=== PATIENT | male | born 1990 | race African-American/Black ===

== ENCOUNTER 2023-01-16 20:02 | Emergency (ER) | payer SELFPAY ==
[2023-01-16 20:50] VITALS: BP 143/87; PULSE 84; RESP 18; TEMP 36.6; O2SAT 97; BMI 36.2
[2023-01-16] MEDS: Amoxicillin 500 MG CAPSULE PO (22:35)
--- NOTE | 2023-01-16 22:35 | ED.GENADULT ---
HPI - General Adult General Chief complaint: Ear Problems Stated complaint: Left ear pain Time Seen by Provider: 01/16/23 22:05 Source: patient, RN notes reviewed and old records reviewed Mode of arrival: ambulatory Limitations: no limitations History of Present Illness HPI narrative: 32-year-old male presents for evaluation of left ear pain. Patient reports that last week he had what he felt was a cold. He had fevers, chills, cough, congestion All of those symptoms resolved with the exception of that he now has left ear With started about 3 days ago He feels of the ear is ?clogged. ? He reports trying to clean out the ear with hydrogen peroxide, drops from [employer] and ?Q-tips. ? No drainage from the ear Related Data Previous Rx's Medication Instructions Recorded amoxicillin 500 mg tablet 500 mg PO TID #30 tabs 01/16/23 Allergies Allergy/AdvReac Type Severity Reaction Status Date / Time No Known Allergies Allergy Verified 01/16/23 20:48 Review of Systems Constitutional: Constitutional: Denies chills and Denies fever(s) ENT: Denies ear discharge and Reports otalgia Cardiovascular: Cardiovascular: Denies dyspnea Respiratory: Respiratory: Reports cough and Denies dyspnea PMFSH Social History Social History Advance Directives: No Advance Directives Information Provided: No Physical Exam ED Vital Signs: Vital Signs - 24 hr 01/16/23 20:50 Temperature 97.8 F Pulse Rate 84 Respiratory Rate 18 Blood Pressure 143/87 H Pulse Oximetry 97 Oxygen Delivery Method Room Air BMI result Body Mass Index 36.2 Const General: healthy appearing, comfortable, no acute distress, alert and awake Nutritional Appearance: well nourished Orientation/consciousness: patient oriented x3 HENMT Other: No mastoid tenderness, pre or postauricular edema bilaterally Head: Yes normocephalic and Yes atraumatic Ears: external ears normal, TM's abnormal bilaterally, TM normal on the right, left TM abnormal and TM abnormal (On left only) bulging, erythematous and with fluid behind the TM Eyes Eyelids: Yes eyelids normal Conjunctivae: conjunctivae normal Sclerae: sclerae normal Corneas: corneas normal Pupils: Equal, round and reactive pupils present EOM: EOMs intact bilaterally Neck Neck: Yes full ROM Resp Effort & Inspection: normal respiratory effort, able to speak in complete sentences and not labored Neuro General: patient oriented x3 Cranial nerves: Yes Equal, round and reactive pupils present and Yes Bilaterally intact EOM present Cognition (Neuro): normal cognition Extrem Other: Moving all extremities well without any obvious deformities Medications Administered Discontinued Medications Generic Name Dose Route Start Last Admin Trade Name Guillermina PRN Reason Stop Dose Admin Amoxicillin 500 mg 01/16/23 22:29 01/16/23 22:35 Amoxicillin 500 Mg Capsule PO 01/16/23 22:30 500 mg ONCE ONE Administration Medical Decision Making Medical Decision Making [facility] Narrative: 32-year-old male presents for evaluation of left ear pain. Clinically has acute otitis media without complication. He will be treated with amoxicillin t.i.d. times 10 days. He was encouraged not to put anything in his ear Differential Diagnosis Differential Diagnoses: The differential diagnosis associated with the presentation includes Otitis media Otitis externa Mastoiditis Middle ear effusion Cerumen impaction Discharge Plan Discharge Clinical Impression: Otitis media Qualifiers: Otitis media type: serous Chronicity: acute Laterality: left Patient Disposition: Home, Self-Care Instructions: Ear Infection (ED) Additional Instructions: You have an ear infection of the left ear Take the antibiotic twice daily for 10 days Do not stick anything in your ear including Q-tips Follow-up with your primary doctor Prescriptions: New amoxicillin 500 mg tablet 500 mg PO TID Qty: 30 0RF Interventions: ED Discharge Assessment Last Done: 01/16/23 22:44
== END 2023-01-16 22:47 | disposition home or self-care (01) ==
PROVIDERS: Emergency Provider Internal Medicine
DX: H65.02 Acute serous otitis media, left ear (principal)
CPT/HCPCS: 99283

== ENCOUNTER 2023-04-28 00:25 | Emergency (ER) | payer SELFPAY ==
--- NOTE | ~2023-04-28 | XR_ITS ---
EXAMINATION: XR CHEST CLINICAL INFORMATION: Cough COMPARISON: None available. TECHNIQUE: Frontal view of the chest was obtained. FINDINGS: Diffuse bilateral bronchial wall thickening. No focal consolidation. No pleural effusion or pneumothorax. Normal heart size and pulmonary vascularity. Multiple healed right-sided rib fractures. XR/XR chest 1V IMPRESSION: * Diffuse bilateral bronchial wall thickening suggestive of bronchitis. * No focal consolidation.
[2023-04-28 00:36] VITALS: BP 154/100; PULSE 120; PULSE 128; RESP 25; TEMP 37.8; O2SAT 95; O2SAT 96; BMI 34.0
--- NOTE | 2023-04-28 01:10 | PC.NURSE ---
dr. mendez aware of meeting sepsis criteria. 2x attmempts at iv no access. dr. mendez aware. labs obtained.
[2023-04-28 01:12] LABS: Basophils Percent Auto 0.3 % (0-2); Eosinophils Absolute Auto 0.1 X10*3/uL (0.0-0.4); Eosinophils Percent Auto 1.4 % (0-4); Hematocrit 44.2 % (42.0-52.0); Hemoglobin 15.8 g/dl (14.0-18.0); Imm Gran Abs Auto 0.04 X10*3/uL (0.00-0.03); Imm Gran Pct Auto 0.6 % (0.0-0.4); Lymphocytes Absolute Auto 1.2 X10*3/uL (1.2-4.9); Lymphocytes Percent Auto 17.8 % (20-40); MANUAL DIFF FLAG SCAN; Mean Corpuscular HGB Conc 35.7 g/dl (31.0-36.0); Mean Corpuscular Hemoglobin 30.4 pg (27.0-33.0); Mean Corpuscular Volume 85.2 fL (80.0-98.0); Monocytes Absolute Auto 1.5 X10*3/uL (0.1-1.2); Monocytes Percent Auto 23.4 % (2-11); Neutrophils Absolute Auto 3.6 x10*3/uL (2.0-8.3); Neutrophils Percent Auto 56.5 % (45-73); Platelet Count 178 X10*3/uL (160-400); Red Blood Count 5.19 X10*6/uL (4.60-5.80); Red Cell Distribution Width 12.5 % (11.0-16.0); SCAN SMEAR FLAG 1; White Blood Count 6.5 X10*3/uL (4.8-10.8)
--- NOTE | 2023-04-28 01:27 | ED.FEVER ---
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 complaining of cold symptoms body aches sore throat the read fever since early today T-max was 104 degrees at home Related Data Previous Rx's Medication Instructions Recorded amoxicillin 500 mg tablet 500 mg PO TID #30 tabs 01/16/23 codeine 10 mg-guaifenesin 100 mg/5 10 ml PO Q6H PRN cough #237 mL 04/28/23 mL oral liquid ibuprofen 600 mg tablet 600 mg PO Q6H PRN fever or pain 04/28/23 #30 tabs oseltamivir 75 mg capsule (Tamiflu) 75 mg PO BID 5 days #10 caps 04/28/23 Allergies Allergy/AdvReac Type Severity Reaction Status Date / Time No Known Allergies Allergy Verified 01/16/23 20:48 Review of Systems Review of Systems: Yes all other systems are reviewed and are negative [facility] Social History Social History Advance Directives: No Advance Directives Information Provided: No Physical Exam Vital Signs: Vital Signs: Last Vital Signs Temp 100.1 F 04/28/23 00:36 Pulse 114 H 04/28/23 02:06 Resp 25 H 04/28/23 00:36 BP 124/66 04/28/23 02:06 Pulse Ox 95 04/28/23 00:36 O2 Del Method Room Air 04/28/23 00:36 BMI result Body Mass Index 34.0 Appearance: Alert. Oriented X3. No acute distress. Febrile to touch Eyes: Slightly injected conjunctiva ENT: Pharynx normal. Oral Mucosa moist Neck: Normal inspection. Neck supple. CVS: Normal heart rate and rhythm. Pulses normal. Respiratory: No respiratory distress. Equal air entry bilateral, Abdomen: Soft and nontender. Bowel sounds are present, Skin: Skin warm and dry. Normal skin color. Normal skin turgor. Extremities: No lower extremity edema. No calf tenderness Neuro: Oriented X 3. No motor deficit. Medications Administered Discontinued Medications Generic Name Dose Route Start Last Admin Trade Name Freq PRN Reason Stop Dose Admin Acetaminophen 975 mg 04/28/23 01:40 04/28/23 02:02 Acetaminophen 325 Mg Tablet PO 04/28/23 01:41 975 mg ONCE ONE Administration Guaifenesin/Codeine Phosphate 10 ml 04/28/23 01:40 04/28/23 02:02 Guaifen/Codeine Sf 200/20/10ml 10 Ml Liquid PO 04/28/23 01:41 10 ml ONCE ONE Administration Oseltamivir Phosphate 75 mg 04/28/23 01:55 04/28/23 02:02 Oseltamivir Phosphate 75 Mg Capsule PO 04/28/23 01:56 75 mg ONCE ONE Administration Medical Decision Making Medical Decision Making MDM Narrative: Patient with influenza B COVID, RSV negative chest x-ray negative for acute infiltrate will discharge patient on supportive treatment Lab Data MDM Lab Attestation statement: I reviewed the patient's lab results. 04/28/23 01:04 04/28/23 01:04 Labs: Lab Results 04/28/23 04/28/23 Range/Units 01:04 01:05 WBC 6.5 (4.8-10.8) X10*3/uL RBC 5.19 (4.60-5.80) X10*6/uL Hgb 15.8 (14.0-18.0) g/dl Hct 44.2 (42.0-52.0) % MCV 85.2 (80.0-98.0) fL MCH 30.4 (27.0-33.0) pg MCHC 35.7 (31.0-36.0) g/dl RDW 12.5 (11.0-16.0) % Plt Count 178 (160-400) X10*3/uL MPV 11.0 (9.4-12.4) fL Immature Gran % (Auto) 0.6 H (0.0-0.4) % Neut % (Auto) 56.5 (45-73) % Lymph % (Auto) 17.8 L (20-40) % [place] % (Auto) 23.4 H (2-11) % Eos % (Auto) 1.4 (0-4) % Baso % (Auto) 0.3 (0-2) % Lymph # (Auto) 1.2 (1.2-4.9) X10*3/uL [place] # (Auto) 1.5 H (0.1-1.2) X10*3/uL Eos # (Auto) 0.1 (0.0-0.4) X10*3/uL Baso # (Auto) 0.0 (0.0-0.2) X10*3/uL Abs Immat Gran (auto) 0.04 H (0.00-0.03) X10*3/uL Absolute Neuts (auto) 3.6 (2.0-8.3) x10*3/uL Absolute Nucleated RBC 0.000 (0.0-0.012) X10*3/uL Nucleated RBC % (auto) 0.0 (0.0-0.2) /100WBC Smear Tech's Comments VERIFIED Sodium 138 (135-145) mmol/L Potassium 3.8 (3.3-5.1) mmol/L Chloride 107 (96-108) mmol/L Carbon Dioxide 22 (22-29) mmol/L Anion Gap 13 (12-20) BUN 12 (9-16) mg/dL Creatinine 0.85 (0.5-1.4) mg/dL Estim Creat Clear Calc 160.9 Estimated GFR > 60 Random Glucose 147 H (60-115) mg/dL Calcium 9.0 (8.4-10.2) mg/dL Total Bilirubin 0.5 (0.0-1.0) mg/dL AST 46 H (5-37) U/L ALT 69 H (0-40) U/L Alkaline Phosphatase 54 (39-117) U/L Total Protein 6.9 (6.5-8.0) g/dL Albumin 4.1 (3.5-5.0) g/dL Influenza Type A (PCR) NEGATIVE (Negative) Influenza Type B (PCR) POSITIVE A (Negative) RSV RNA Qual (PCR) NEGATIVE (Negative) SARS-CoV-2 RNA (RT-PCR) NEGATIVE (Negative) Independent Interpretation I performed an independent interpretation of an: Plain X-Ray Radiology Impression Discussion of test interpretation with radiology: I have reviewed the radiologist's reading. Discharge Plan Discharge Clinical Impression: Influenza B Patient Disposition: Home, Self-Care Instructions: Influenza (ED) Additional Instructions: Drink plenty of fluids Tylenol/Motrin for fever Cough syrup as prescribed Tamiflu daily for 5 days Follow with PCP if not better Beber mucho l?qustephanie Tylenol/Motrin para la fiebre Jarabe para la tos seg?n lo prescrito Tamiflu diario lashonda 5 d?as. Seguir con PCP si no es mejor Prescriptions: New codeine-guaifenesin 10-100 mg/5 mL liquid 10 ml PO Q6H PRN (Reason: cough) Qty: 237 0RF ibuprofen 600 mg tablet 600 mg PO Q6H PRN (Reason: fever or pain) Qty: 30 0RF oseltamivir [Tamiflu] 75 mg capsule 75 mg PO BID 5 Days Qty: 10 0RF No Action amoxicillin 500 mg tablet 500 mg PO TID Qty: 30 0RF Stand Alone Forms: Work/School Release Interventions: ED Discharge Assessment Last Done: 04/28/23 02:52 Discharge Date/Time: 04/28/23 02:52 Print Language: Luxembourger
[2023-04-28 01:32] LABS: Alanine Aminotransferase 69 U/L (0-40); Albumin Level 4.1 g/dL (3.5-5.0); Alkaline Phosphatase 54 U/L (39-117); Anion Gap 13 (12-20); Aspartate Amino Transferase 46 U/L (5-37); Bilirubin Total 0.5 mg/dL (0.0-1.0); Blood Urea Nitrogen 12 mg/dL (9-16); Carbon Dioxide 22 mmol/L (22-29); Chloride 107 mmol/L (96-108); Creatinine Clr Calc Pharmacy 160.9; Estimated Glomerular Filt Rate > 60; Glucose Random 147 mg/dL (60-115); Potassium 3.8 mmol/L (3.3-5.1); Sodium 138 mmol/L (135-145); Total Protein 6.9 g/dL (6.5-8.0)
[2023-04-28 01:36] LABS: SLIDE REVIEW VERIFIED
[2023-04-28 01:53] LABS: Influenza A PCR NEGATIVE (Negative); Influenza B PCR POSITIVE (Negative); Resp Syncy Virus RNA Qual PCR NEGATIVE (Negative); SARS COV2 PCR INHOUSE NEGATIVE (Negative)
[2023-04-28] MEDS: Oseltamivir Phosphate 75 MG CAPSULE PO (02:02)
[2023-04-28] MEDS: Acetaminophen 325 MG TABLET 975 MG PO (02:02)
[2023-04-28] MEDS: guaiFEN/Codeine SF 200/20/10ML 10 ML LIQUID PO (02:02)
[2023-04-28 02:06] VITALS: BP 124/66; PULSE 114
--- NOTE | 2023-04-28 02:06 | PC.NURSE ---
pt educated on isolation precautions; medicated per jul. resp even and unlabored lung sounds cta.
== END 2023-04-28 02:52 | disposition home or self-care (01) ==
PROVIDERS: Emergency Provider Internal Medicine
DX: J10.1 Influenza due to other identified influenza virus with other respiratory manifestations (principal); Z20.822 Contact with and (suspected) exposure to COVID-19; Z20.828 Contact with and (suspected) exposure to other viral communicable diseases
CPT/HCPCS: 0241U; 36415; 71045; 80053; 85025; 99283; 99284

== ENCOUNTER 2023-05-06 19:50 | Emergency (ER) | payer OTHER, SELFPAY ==
--- NOTE | ~2023-05-06 | XR_ITS ---
EXAMINATION: XR TOES, RIGHT CLINICAL INFORMATION: Right great toe pain. Redness. COMPARISON: None available. TECHNIQUE: 3 views of the right toes were obtained. FINDINGS: There are no fractures or dislocations. No joint effusion is identified. No bone, joint or soft tissue abnormality is demonstrated. XR/XR toe RT min 2V IMPRESSION: Unremarkable right great toe examination.
[2023-05-06 19:58] VITALS: BP 148/86; PULSE 83; RESP 18; TEMP 37.1; O2SAT 97; BMI 38.5
--- NOTE | 2023-05-06 20:06 | ED.GENADULT ---
HPI - General Adult General Chief complaint: Extremity Injury, Lower Stated complaint: Lt Infected Thumb Time Seen by Provider: 05/06/23 22:29 Source: patient Mode of arrival: ambulatory Limitations: no limitations History of Present Illness HPI narrative: 33-year-old male with a history of ingrown toenails presents to the ER with complaints of right great toe pain and swelling noticed today with no known injury or trauma. Patient denies fevers, chills, numbness or tingling. Related Data Previous Rx's Medication Instructions Recorded amoxicillin 500 mg tablet 500 mg PO TID #30 tabs 01/16/23 codeine 10 mg-guaifenesin 100 mg/5 10 ml PO Q6H PRN cough #237 mL 04/28/23 mL oral liquid ibuprofen 600 mg tablet 600 mg PO Q6H PRN fever or pain 04/28/23 #30 tabs oseltamivir 75 mg capsule (Tamiflu) 75 mg PO BID 5 days #10 caps 04/28/23 doxycycline monohydrate 100 mg 100 mg PO BID #20 caps 05/06/23 capsule ibuprofen 600 mg tablet 600 mg PO Q8H PRN pain #30 tabs 05/06/23 Allergies Allergy/AdvReac Type Severity Reaction Status Date / Time No Known Allergies Allergy Verified 01/16/23 20:48 Review of Systems Review of Systems: Yes all other systems are reviewed and are negative Constitutional: Constitutional: Reports no additional constitutional complaints, Denies body ache(s), Denies chills, Denies fever(s), Denies headache(s) and Denies weakness Eyes: Eyes: Reports no additional eye complaints and Denies change in vision ENT: Reports system reviewed and no additional complaints, except as documented, Denies dizziness, Denies headache(s), Denies nasal congestion, Denies nasal discharge and Denies neck pain Cardiovascular: Cardiovascular: Reports no additional cardiovascular complaints, Denies chest pain, Denies leg edema and Denies dyspnea Respiratory: Respiratory: Reports no additional respiratory complaints, Denies cough and Denies dyspnea Gastrointestinal: Gastrointestinal: Reports no additional gastrointestinal complaints, Denies abdominal pain, Denies diarrhea, Denies nausea and Denies vomiting Genitourinary: Genitourinary: Denies urinary incontinence Musculoskeletal: Musculoskeletal: Reports no additional musculoskeletal complaints, Denies back pain, Denies arthralgias, Denies joint swelling, Denies neck pain, Denies numbness and Denies tingling Integumentary/Breasts: Skin/Breast: Reports system reviewed and no additional complaints, except as docu, Reports swelling, Reports erythema and Denies rash Neurologic: Reports system reviewed and no additional complaints, except as documented, Denies Abnormal speech present, Denies dizziness, Denies headache(s), Denies numbness, Denies tingling and Denies weakness PMFSH Past Medical History Attestation statement: The following information was validated with the patient. Source: old records reviewed and nursing notes reviewed Onset Date is defined in the Problem List Problems that require an onset date and time if occurred within 24 hrs of arrival to the ED Aortic Dissection and Rupture; Neurologic impairment; Cardiopulmonary Arrest; Endotracheal Intubation; Insertion or Replacement of Mechanical Circulatory Assist Device Social History Social History Advance Directives: No Advance Directives Information Provided: No Physical Exam ED Vital Signs: Vital Signs - 24 hr 05/06/23 19:58 Temperature 98.7 F Pulse Rate 83 Respiratory Rate 18 Blood Pressure 148/86 H Pulse Oximetry 97 Oxygen Delivery Method Room Air BMI result Body Mass Index 38.5 Const General: cooperative, healthy appearing, comfortable and no acute distress Orientation/consciousness: patient oriented x3 Limitations: no limitations HENMT Head: Yes normal to inspection Ears: hearing grossly normal bilaterally General nose exam: Normal external nose present Face and sinus: Yes normal facial exam Mouth: Normal oral and palatal mucosa present Throat: Yes posterior oropharynx normal Eyes General: appearance normal, both eyes and all related structures Pupils: Equal, round and reactive pupils present Neck Neck: Yes normal visual inspection Chest Chest palpation & inspection: normal inspection of the chest Resp Effort & Inspection: normal respiratory effort Auscultation: clear to auscultation bilaterally Cardio Rate: regular rate Rhythm: regular rhythm Peripheral pulses: Peripheral pulses 2+ throughout GI Inspection: Yes normal to inspection Palpation (GI): Soft to palpation and nontender Auscultation: normal bowel sounds Back/Spine/Pelvis Thoracic/Lumbar Spine: thoracic and lumbar spine normal to inspection Skin General skin exam: no rashes or lesions noted Neuro General: patient oriented x3, no focal motor deficits and normal sensation to monofilament Cranial nerves: Yes Equal, round and reactive pupils present Cognition (Neuro): normal cognition Speech: No Abnormal speech present Gait exam (Neuro): Normal gait present Motor exam (neuro): 5/5 motor strength present throughout Extrem Other: The lateral aspect of the right toenail there is erythema, swelling, tenderness palpation. There is not appear to be an ingrown nail conducive to removal as I am able to pull it away from the skin with no difficulty. Patient is able to perform range of motion of the digit with no difficulty. Course Course Course Narrative: This is an RME: Additional HPI, ROS, PE not included below will be deferred to primary provider. This is a 33- year old male presenting to the emergency department with complaints of right great toe pain and redness since today. No trauma or injury. Right toe is exquisitely tender to palpation with redness and warmth. No history of gout. No fevers or chills. Plan: labs, xray Medical Decision Making Medical Decision Making MDM Narrative: 33-year-old male with a history of ingrown toenails presents to the ER with complaints of right great toe pain and swelling noticed today with no known injury or trauma. Patient denies fevers, chills, numbness or tingling. The lateral aspect of the right toenail there is erythema, swelling, tenderness palpation. There is not appear to be an ingrown nail conducive to removal as I am able to pull it away from the skin with no difficulty. Patient is able to perform range of motion of the digit with no difficulty. Will recommend warm soaks, oral antibiotics and follow up outpatient with a primary care and podiatry. Reviewed worrisome signs and symptoms of when to return to the emergency room. Comfortable plan for discharge home. Differential Diagnosis Differential Diagnoses: The differential diagnosis associated with the presentation includes Ingrown toenail, cellulitis Low concern for osteomyelitis, fracture Admission/Observation Consideration of admission/observation: Escalation of care including admission/observation considered Patient appears to have maybe a ingrown toenail with some local cellulitis. It is not circumferential. His normal labs and normal x-ray injury do not think he needs admission for IV antibiotics or further manage Lab Data [facility] Lab Attestation statement: I reviewed the patient's lab results. Unremarkable 05/06/23 20:41 05/06/23 20:41 Labs: Lab Results 05/06/23 Range/Units 20:41 WBC 8.6 (4.8-10.8) X10*3/uL RBC 5.20 (4.60-5.80) X10*6/uL Hgb 16.0 (14.0-18.0) g/dl Hct 43.0 (42.0-52.0) % MCV 82.7 (80.0-98.0) fL MCH 30.8 (27.0-33.0) pg MCHC 37.2 H (31.0-36.0) g/dl RDW 11.9 (11.0-16.0) % Plt Count 234 D (160-400) X10*3/uL MPV 10.7 (9.4-12.4) fL Immature Gran % (Auto) 0.6 H (0.0-0.4) % Neut % (Auto) 54.9 (45-73) % Lymph % (Auto) 32.1 (20-40) % [place] % (Auto) 8.1 (2-11) % Eos % (Auto) 3.8 (0-4) % Baso % (Auto) 0.5 (0-2) % Lymph # (Auto) 2.8 (1.2-4.9) X10*3/uL [place] # (Auto) 0.7 (0.1-1.2) X10*3/uL Eos # (Auto) 0.3 (0.0-0.4) X10*3/uL Baso # (Auto) 0.0 (0.0-0.2) X10*3/uL Abs Immat Gran (auto) 0.05 H (0.00-0.03) X10*3/uL Absolute Neuts (auto) 4.7 (2.0-8.3) x10*3/uL Absolute Nucleated RBC 0.000 (0.0-0.012) X10*3/uL Nucleated RBC % (auto) 0.0 (0.0-0.2) /100WBC ESR 2 (0-15) MM/HR Sodium 143 (135-145) mmol/L Potassium 3.8 (3.3-5.1) mmol/L Chloride 110 H (96-108) mmol/L Carbon Dioxide 24 (22-29) mmol/L Anion Gap 13 (12-20) BUN 16 (9-16) mg/dL Creatinine 0.79 (0.5-1.4) mg/dL Estim Creat Clear Calc 158.5 Estimated GFR > 60 Random Glucose 125 H (60-115) mg/dL Uric Acid 6.0 (3.4-7.0) mg/dL Calcium 9.2 (8.4-10.2) mg/dL Total Bilirubin 0.5 (0.0-1.0) mg/dL Direct Bilirubin 0.1 (0.0-0.5) mg/dL AST 36 (5-37) U/L ALT 68 H (0-40) U/L Alkaline Phosphatase 57 (39-117) U/L C-Reactive Protein 0.14 (< or = 0.50) mg/dL Total Protein 7.4 (6.5-8.0) g/dL Albumin 4.3 (3.5-5.0) g/dL Independent Interpretation I performed an independent interpretation of an: Plain X-Ray Interpretation: I independently reviewed the x-ray and agree with Radiology report Radiology Impression Discussion of test interpretation with radiology: I have reviewed the radiologist's reading. Radiologist Impression: [address] [address] XRay Report Signed Patient: [place] MR#: [id number] : 1990 Acct:[id number] Age/Sex: 33 / M ADM Date: 05/06/23 Loc: .ED Attending Dr: Ordering Physician: Vilma Prescott Date of Service: 05/06/23 Procedure(s): XR toe RT min 2V Accession Number(s): [id number] cc: Vilma Prescott; Physician,None ~ EXAMINATION: XR TOES, RIGHT CLINICAL INFORMATION: Right great toe pain. Redness. COMPARISON: None available. TECHNIQUE: 3 views of the right toes were obtained. FINDINGS: There are no fractures or dislocations. No joint effusion is identified. No bone, joint or soft tissue abnormality is demonstrated. XR/XR toe RT min 2V IMPRESSION: Unremarkable right great toe examination. 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 Regresar si los s?ntomas empeoran Prescriptions: New doxycycline monohydrate 100 mg capsule 100 mg PO BID Qty: 20 0RF ibuprofen 600 mg tablet 600 mg PO Q8H PRN (Reason: pain) Qty: 30 0RF No Action amoxicillin 500 mg tablet 500 mg PO TID Qty: 30 0RF codeine-guaifenesin 10-100 mg/5 mL liquid 10 ml PO Q6H PRN (Reason: cough) Qty: 237 0RF ibuprofen 600 mg tablet 600 mg PO Q6H PRN (Reason: fever or pain) Qty: 30 0RF oseltamivir [Tamiflu] 75 mg capsule 75 mg PO BID 5 Days Qty: 10 0RF Referrals: Physician,None [Primary Care Provider] - 5 days
[2023-05-06 20:46] LABS: MANUAL DIFF FLAG NO
[2023-05-06 20:48] LABS: Basophils Percent Auto 0.5 % (0-2); Eosinophils Absolute Auto 0.3 X10*3/uL (0.0-0.4); Eosinophils Percent Auto 3.8 % (0-4); Imm Gran Abs Auto 0.05 X10*3/uL (0.00-0.03); Imm Gran Pct Auto 0.6 % (0.0-0.4); Lymphocytes Absolute Auto 2.8 X10*3/uL (1.2-4.9); Lymphocytes Percent Auto 32.1 % (20-40); Mean Corpuscular HGB Conc 37.2 g/dl (31.0-36.0); Mean Corpuscular Hemoglobin 30.8 pg (27.0-33.0); Mean Corpuscular Volume 82.7 fL (80.0-98.0); Mean Platelet Volume 10.7 fL (9.4-12.4); Monocytes Absolute Auto 0.7 X10*3/uL (0.1-1.2); Monocytes Percent Auto 8.1 % (2-11); Neutrophils Absolute Auto 4.7 x10*3/uL (2.0-8.3); Neutrophils Percent Auto 54.9 % (45-73); Platelet Count 234 X10*3/uL (160-400); Red Cell Distribution Width 11.9 % (11.0-16.0); White Blood Count 8.6 X10*3/uL (4.8-10.8)
[2023-05-06 21:09] LABS: Alanine Aminotransferase 68 U/L (0-40); Albumin Level 4.3 g/dL (3.5-5.0); Alkaline Phosphatase 57 U/L (39-117); Anion Gap 13 (12-20); Aspartate Amino Transferase 36 U/L (5-37); Bilirubin Direct 0.1 mg/dL (0.0-0.5); Bilirubin Total 0.5 mg/dL (0.0-1.0); Blood Urea Nitrogen 16 mg/dL (9-16); C Reactive Protein 0.14 mg/dL (< or = 0.50); Calcium 9.2 mg/dL (8.4-10.2); Carbon Dioxide 24 mmol/L (22-29); Chloride 110 mmol/L (96-108); Creatinine Clr Calc Pharmacy 158.5; Estimated Glomerular Filt Rate > 60; Glucose Random 125 mg/dL (60-115); Potassium 3.8 mmol/L (3.3-5.1); Sodium 143 mmol/L (135-145); Total Protein 7.4 g/dL (6.5-8.0)
[2023-05-06 21:37] LABS: Erythrocyte Sedimentation Rate 2 MM/HR (0-15)
[2023-05-06] MEDS: Doxycycline Monohydrate 100 MG CAPSULE PO (23:10)
[2023-05-06] MEDS: Ibuprofen 600 MG TABLET PO (23:10)
--- NOTE | 2023-05-06 23:11 | PC.NURSE ---
pt has positive cms to lower extremities, reviewed discharge instruction with pt. pt verbalized understanding, no sign of distress, medicated per mar.
== END 2023-05-06 23:14 | disposition home or self-care (01) ==
PROVIDERS: Physician Assistant Medical; Emergency Provider Emergency Medicine Emergency Medical Services
DX: L60.0 Ingrowing nail (principal); M79.674 Pain in right toe(s)
CPT/HCPCS: 36415; 73660; 80048; 80076; 84550; 85025; 85652; 86140; 99283

== ENCOUNTER 2023-09-12 20:58 | Emergency (ER) | payer SELFPAY ==
--- NOTE | ~2023-09-12 | XR_ITS ---
EXAMINATION: XR HIP, LEFT XR FEMUR, LEFT CLINICAL INFORMATION: Pain. COMPARISON: None available. TECHNIQUE: AP and frog-leg lateral views of the left hip. AP and lateral views of the left femur were obtained. FINDINGS: Bony alignment and mineralization are normal. The bilateral acetabular joint spaces are symmetric and well-maintained. The femoral heads are smooth. The sacroiliac joints are symmetric and well-maintained. The pubic symphysis is intact. The femur shows no fracture or dislocation. There is no abnormal bone erosion or periosteal thickening. The joint spaces of the knee are well-maintained. XR/XR hip LT min 2V IMPRESSION: Normal pelvis, left hip and left femur radiographs.
--- NOTE | ~2023-09-12 | XR_ITS ---
EXAMINATION: XR HIP, LEFT XR FEMUR, LEFT CLINICAL INFORMATION: Pain. COMPARISON: None available. TECHNIQUE: AP and frog-leg lateral views of the left hip. AP and lateral views of the left femur were obtained. FINDINGS: Bony alignment and mineralization are normal. The bilateral acetabular joint spaces are symmetric and well-maintained. The femoral heads are smooth. The sacroiliac joints are symmetric and well-maintained. The pubic symphysis is intact. The femur shows no fracture or dislocation. There is no abnormal bone erosion or periosteal thickening. The joint spaces of the knee are well-maintained. XR/XR femur LT 2V IMPRESSION: Normal pelvis, left hip and left femur radiographs.
[2023-09-12 21:05] VITALS: BP 140/95; PULSE 91; RESP 16; TEMP 36.7; O2SAT 97; BMI 39.1
--- NOTE | 2023-09-12 22:52 | ED_ITS ---
HPI - Extremity Problem General Chief complaint: Extremity Problem Stated complaint: L hip pain Time Seen by Provider: 09/12/23 22:18 Source: patient, family and old records reviewed Mode of arrival: ambulatory Limitations: no limitations History of Present Illness HPI Narrative: 33 yo male with 1 week of radiating L buttock pain no trauma noted radiates down the leg - hurts to move and stretch. no IVDA, no b/b incontinence, no saddle anesthesia. MD Complaint: other (L buttock pain) Onset (ago): week(s) (1) Pain Consistency: intermittent Location: left and lower extremity Quality: stabbing Radiation: distal Relieving factors: rest Exacerbating factors: range of motion and palpation Associated symptoms: denies other symptoms Related Data Previous Rx's ?Medication ?Instructions ?Recorded amoxicillin 500 mg tablet 500 mg PO TID #30 tabs 01/16/23 codeine 10 mg-guaifenesin 100 mg/5 10 ml PO Q6H PRN cough #237 mL 04/28/23 mL oral liquid ibuprofen 600 mg tablet 600 mg PO Q6H PRN fever or pain 04/28/23 #30 tabs oseltamivir 75 mg capsule (Tamiflu) 75 mg PO BID 5 days #10 caps 04/28/23 doxycycline monohydrate 100 mg 100 mg PO BID #20 caps 05/06/23 capsule ibuprofen 600 mg tablet 600 mg PO Q8H PRN pain #30 tabs 05/06/23 diazepam 5 mg tablet (Valium) 5 mg PO TID PRN muscle spasm #10 09/12/23 tabs ibuprofen 600 mg tablet 600 mg PO Q6H PRN pain #30 tabs 09/12/23 prednisone 20 mg tablet 40 mg (2 x 20 mg) PO DAILY 4 days 09/12/23 #8 tabs Allergies Allergy/AdvReac Type Severity Reaction Status Date / Time No Known Allergies Allergy Verified 09/12/23 21:07 Review of Systems Review of Systems: Constitutional : No Weight loss, No Fever, No Chills, ENT/Mouth : No Hearing loss, No Ear Pain, No Nasal Congestion, No Sinus Pain, No Hoarseness, No sore throat, No Rhinorrhea, No Swallowing Difficulty Cardiovascular : No Chest Pain, No SOB Respiratory : No Cough, No Dyspnea Gastrointestinal : No Nausea, No Vomiting, No Diarrhea, No abdominal Pain, No Hematochezia, No Melena Genitourinary : No Dysuria, No Urinary Frequency, No Hematuria, No Urinary Incontinence, Musculoskeletal : positive back pain Skin : No Skin Lesions, No rash Neuro : No Weakness, No Numbness, No Paresthesias, no loss of bowel or bladder incontinence, no saddle anesthesia all other systems reviewed and are negative [facility] Past Medical History Attestation statement: The following information was validated with the patient. Medical History No pertinent past medical history Social History Social History (Updated 09/12/23 @ 22:56 by Guerita Granados DO) Patient Tobacco Use Status: Never used Tobacco Physical Exam Vital Signs: Vital Signs: Last Vital Signs Temp 98.0 F 09/12/23 21:05 Pulse 91 09/12/23 21:05 Resp 16 09/12/23 21:05 BP 140/95 H 09/12/23 21:05 Pulse Ox 97 09/12/23 21:05 O2 Del Method Room Air 09/12/23 21:05 BMI result Body Mass Index 39.1 Appearance: Alert. Oriented X3. No acute distress. Eyes: Pupils equal, round and reactive to light. ENT: Pharynx normal. Neck: Normal inspection. Neck supple. CVS: Normal heart rate and rhythm. Pulses normal. Respiratory: No respiratory distress. Breath sounds normal. Abdomen: Soft and nontender. Skin: Skin warm and dry. Normal skin color. Normal skin turgor. Extremities: No lower extremity edema. No calf ttp Neuro: Oriented X 3. No motor deficit. No sensory deficit. SILT inner thigh, no clonus, L5 5/5 bilaterally , pain in left buttock reproduces pain Medical Decision Making Medical Decision Making [facility] Narrative: 33 yo male with no sig PMH here with c/o sciatica on left side no b/b incontinence no saddle anesthesia no red flags at this time will obtain xrays and start on anti inflammatories and muscle relaxers and refer to PCP for PT Differential Diagnosis Differential Diagnoses: The differential diagnosis associated with the presentation includes sciatica, strain Independent Interpretation I performed an independent interpretation of an: Plain X-Ray (no fx) Radiology Impression Discussion of test interpretation with radiology: I have reviewed the radiologist's reading. Independent Historian Clinical information obtained from an independent historian. History obtained from or confirmed by: Spouse Prescription Management I considered prescription management with: Pain Medication and Other Discharge Plan Discharge Clinical Impression: Sciatica of left side Patient Disposition: Home, Self-Care Instructions: Sciatica (ED), Lower Back Exercises (ED) Additional Instructions: perform stretches. you need a doctor to follow up with. return for worsening symptoms, numbness, weakness, worsening pain or any other concerns. Prescriptions: New prednisone 20 mg tablet 40 mg PO DAILY 4 Days Qty: 8 0RF ibuprofen 600 mg tablet 600 mg PO Q6H PRN (Reason: pain) Qty: 30 0RF diazepam [Valium] 5 mg tablet 5 mg PO TID PRN (Reason: muscle spasm) Qty: 10 0RF Rx Instructions: partial fill is okay No Action doxycycline monohydrate 100 mg capsule 100 mg PO BID Qty: 20 0RF ibuprofen 600 mg tablet 600 mg PO Q8H PRN (Reason: pain) Qty: 30 0RF amoxicillin 500 mg tablet 500 mg PO TID Qty: 30 0RF codeine-guaifenesin 10-100 mg/5 mL liquid 10 ml PO Q6H PRN (Reason: cough) Qty: 237 0RF ibuprofen 600 mg tablet 600 mg PO Q6H PRN (Reason: fever or pain) Qty: 30 0RF oseltamivir [Tamiflu] 75 mg capsule 75 mg PO BID 5 Days Qty: 10 0RF Print Language: Tamazight
[2023-09-12] MEDS: predniSONE 20 MG TABLET 40 MG PO (22:56)
[2023-09-12] MEDS: Ketorolac Tromethamine 30 MG/ML VIAL IM (22:56)
[2023-09-12] MEDS: diazePAM 5 MG TABLET PO (22:57)
[2023-09-12 23:00] VITALS: BP 147/87; PULSE 79; RESP 18; TEMP 36.4; O2SAT 97
== END 2023-09-12 23:05 | disposition home or self-care (01) ==
PROVIDERS: Emergency Provider Emergency Medicine
DX: M54.42 Lumbago with sciatica, left side (principal); M25.552 Pain in left hip
CPT/HCPCS: 73502; 73552; 96372; 99283; 99284; J1885

== ENCOUNTER 2024-10-04 14:58 | Outpatient (REF) | payer SELFPAY ==
--- NOTE | ~2024-10-04 | XR_ITS ---
EXAMINATION: XR LUMBAR SPINE 2-3 VIEWS HISTORY: PAIN COMPARISON: There are no prior studies for comparison. FINDINGS: AP, lateral, and coned down views of the lumbar spine are submitted. Osseous mineralization is normal. Five nonrib-bearing lumbar vertebral bodies are identified, maintaining normal height and alignment without evidence of fracture or spondylolisthesis. There is mild disc space narrowing at L5-S1. The remaining intervertebral disc spaces are maintained. The posterior elements are intact. The visualized paraspinal soft tissues are unremarkable. XR/XR lumbar spine 2-3V IMPRESSION: Mild disc space narrowing at L5-S1. Electronically signed by: Tino Hahn MD 10/04/2024 03:35 PM EDT
--- OUTSIDE RECORDS SUMMARY | 2024-10-04 16:14 | XMS_ITS | Encounter Summary ---
Author Organization [employer] Address [address] [place] [address] [address] [place] [address] Care Team Providers Care Medical Management Specialist Name Role Phone Unavailable Primary Care Provider Unavailabl e Reason for Visit * Reason Onset Date Comments chart prep 10/01/2024 Encounter Details Date Type Department Care Team (Late st Contact Info) Description 10/01/2024 Telephone [facility] [address] [place] [address] Kamla Hooks MA chart prep Social History Tobacco Use Types Packs/Day Years Used Date Smoking Tobacco: Never Assessed Sex and Gender Information Value Date Recorded Sex Assigned at Male 05/13/2023 1:55 PM EST Legal Sex Male 1:54 PM EST Gender Identity Male 05/13/2023 1:55 PM EST Sexual Orientation Straight 05/13/2023 1: 55 PM EST documented as of this encounter Miscellaneous Notes * Telephone Encounter - Kamla Hooks MA - 10/01/2024 2:42 PM EDT Chart Prep Labs: not applicable Images: not applicable Referrals: not applicable Vaccines due: Covid, Flu, Tdap, Hep B, Td, and DTAP Screenings: not applicable Overdue care gaps: SBIRT, SDOH, PHQ-9, PRISCILA-7, Oral health screening, and Disability screen documented in this encounter Plan of Treatment Not on file documented as of this encounter Visit Diagnoses Not on filedocumented in this encounter
== END 2024-10-04 14:59 | disposition home or self-care (01) ==
LOC: HO.HHCX 14:58
PROVIDERS: Visit Provider Internal Medicine Geriatric Medicine
DX: M54.50 Low back pain, unspecified (principal)
CPT/HCPCS: 72100

== ENCOUNTER → 2024-10-04 14:59 | Outpatient (BNV) | payer OTHER, SELFPAY | PROVIDERS: Visit Provider Radiology Diagnostic Radiology | DX: M51.360 Other intervertebral disc degeneration, lumbar region with discogenic back pain only (principal) | CPT/HCPCS: 72100 ==

== ENCOUNTER 2024-10-09 07:45 | Outpatient (REF) | payer OTHER, SELFPAY ==
[2024-10-09 08:00] LABS: MANUAL DIFF FLAG NO
[2024-10-09 08:55] LABS: Basophils Percent Auto 0.6 % (0-2); Eosinophils Absolute Auto 0.1 X10*3/uL (0.0-0.4); Eosinophils Percent Auto 1.8 % (0-4); Hematocrit 43.1 % (42.0-52.0); Hemoglobin 15.4 g/dl (14.0-18.0); Imm Gran Abs Auto 0.01 X10*3/uL (0.00-0.03); Imm Gran Pct Auto 0.2 % (0.0-0.4); Lymphocytes Absolute Auto 1.6 X10*3/uL (1.2-4.9); Lymphocytes Percent Auto 31.3 % (20-40); Mean Corpuscular HGB Conc 35.7 g/dl (31.0-36.0); Mean Corpuscular Hemoglobin 31.3 pg (27.0-33.0); Mean Corpuscular Volume 87.6 fL (80.0-98.0); Mean Platelet Volume 10.6 fL (9.4-12.4); Monocytes Absolute Auto 0.5 X10*3/uL (0.1-1.2); Neutrophils Absolute Auto 2.8 x10*3/uL (2.0-8.3); Neutrophils Percent Auto 56.1 % (45-73); Platelet Count 231 X10*3/uL (160-400); Red Blood Count 4.92 X10*6/uL (4.60-5.80); Red Cell Distribution Width 13.4 % (11.0-16.0)
[2024-10-09 09:12] LABS: Estimated Average Glucose 88 mg/dL; Hemoglobin A1c % 4.7 % (<6.0)
[2024-10-09 09:46] LABS: Alanine Aminotransferase 35 U/L (0-40); Albumin Level 4.6 g/dL (3.5-5.0); Alkaline Phosphatase 63 U/L (39-117); Anion Gap 11 (12-20); Aspartate Amino Transferase 32 U/L (5-37); Blood Urea Nitrogen 11 mg/dL (9-16); Calcium 9.6 mg/dL (8.4-10.2); Carbon Dioxide 27 mmol/L (22-29); Chloride 108 mmol/L (96-108); Cholesterol 178 mg/dL (<200); Estimated Glomerular Filt Rate > 60; Glucose Random 82 mg/dL (60-115); HDL Cholesterol 36 mg/dL (>40); LDL Cholesterol Calculated 127 mg/dL (<100); Potassium 4.1 mmol/L (3.3-5.1); Sodium 142 mmol/L (135-145); Total Protein 7.1 g/dL (6.5-8.0); Triglycerides 76 mg/dL (<150)
== END 2024-10-09 07:46 | disposition home or self-care (01) ==
LOC: HO.LAB 07:45
PROVIDERS: PCP Internal Medicine Geriatric Medicine; Visit Provider Internal Medicine Geriatric Medicine
DX: M54.50 Low back pain, unspecified (principal); Z13.1 Encounter for screening for diabetes mellitus; Z13.220 Encounter for screening for lipoid disorders
CPT/HCPCS: 36415; 80053; 80061; 83036; 85025

== ENCOUNTER 2025-04-05 08:00 | Outpatient (REF) | payer OTHER, SELFPAY ==
--- OUTSIDE RECORDS SUMMARY | 2025-04-05 08:04 | XMS_ITS | Clinical Summary ---
Author Organization [employer] Address [address] [place] [address] Care Team Providers Care Route Jumper Name Role Phone Name, Jack BROUSSARD Primary Care Provider [phone] Allergies No known active allergies Medications ibuprofen 800 MG tabletIndicatio ns:Acute right-sided low back pain with right-sided sciatica Take 1 tablet (800 mg) by mouth every 8 (eight) hours if needed for moderate pain or fever. 30 tablet 5 04/07/20 25 Active cyclobenzaprine (Flexeril) 10 MG tabletIndicatio ns:Acute right-sided low back pain with right-sided sciatica One tab po at bedtime prn pain of muscles, do not drive with medicaion 30 tablet 5 Active meloxicam (Mobic) 7.5 MG tablet Take 1 tablet (7.5 mg) by mouth if needed in the morning and at bedtime for mild pain or moderate pain. 60 tablet 03/18/2025 12:10 PM EST 5 Active Diclofenac Sodium 1 % gel Apply to affected area once or twice daily as needed 150 g 1 03/18/2025 12:10 PM EST 5 Active lidocaine (Lidoderm) 5 % patch Apply 1 patch topically Once per day. Remove & discard patch within 12 hours or as directed by MD. 30 patch 11 5 Active Active Problems Problem Noted Date Diagnosed Date Chronic back pain 03/15/2025 Assessment & Plan (03/15/2025 10:00 AM EST): - with right side radiculopathy, also possible right SI joint dysfunction - X-ray in October 2024: Mild disc space narrowing at L5-S1 - Patient was advised to contact PT to schedule appointment - Patient has already been referred [facility] [place] [facility]. - Since the pain is affecting his daily function and work status, will evaluate with MRI - Patient is considering FMLA since all his job tasks involve physically- demanding work - Schedule appointment with PCP Numbness and tingling of hand 03/15/2025 Assessment & Plan (03/15/2025 10:03 AM EST): - bilateral, especially 1st, 2nd, and 3rd fingers - possible carpal tunnel syndrome - evaluate with EMG / NCT Encounters Date Type Department Care Team Description 03/25/[address] [facility] [place] [address] Jack Royal MD CHARTPREP 03/24/2025 [facility] Information Management [address] [place] [address] [place] [address] Alva Garcia MD 03/17/[address] [address] Kamla Hooks [place] Appointment Request 03/17/2025 [facility] [place] [address] Alva Garcia MD MRI LUMBAR SPINE 03/14/2025 11:00 AM EST Office Visit [facility] [place] [address] Alva Garcia MD Chronic right-sided low back pain with right-sided sciatica (Primary Dx); Elevated BP without diagnosis of hypertension; Numbness and tingling of hand 03/14/2025 Travel 03/14/[address] [facility] [place] [address] Kamla Hooks [place] [facility] Cancelled Appt (Provider out ) 03/11/[address] [facility] [place] [address] Kamla Hooks MA chart prep 2025 1:00 PM EST Office Visit [facility] [address] [place] [address] Shelli Pepe MD Acute right-sided low back pain with right-sided sciatica (Primary Dx) 2025 Travel from Last 3 Months Family History Medical History Relation Name Comments No Known Problems Father Diabetes Mother Hypertension Mother Hypothyroidism Mother Relation Name Status Comments Father Mother Social History Tobacco Use Types Packs/Day Years Used Date Smoking Tobacco: Never Smokeless Tobacco: Never Tobacco Cessation:Counseling Given: Not Answered Alcohol Use Standard Drinks/Week Comments Yes 0 (1 standard drink = 0.6 oz pur e alcohol) socially Depression Answer Date Recorded Patient Health Questionnaire-9 Score 7 10/04/2024 Patient Health Questionnaire-9 Score 7 10/04/2024 Last PHQ-9: Questionnaire Data Not on file 0 10/04/2024 Housing Stability Answer Date Recorded What is your housing situation today? I have housing today, but I am worried about losing housing in the future 10/04/[address] you li ve. Do you have problems with any of the following? None of the above 10/04/2024 Food Insecurity Answer Date Recorded Within the past 12 months, y ou worried that your food would run out before you got money to buy more: Never True 10/04/2024 Within the past 12 months,th e food you bought just didn't last and you didn't have enough money to get more: Never True 06/2024 Transportation Answer Date Recorded In the past 12 months, has l ack of transportation kept you from medical appts, meetings, work or from getting things needed for daily living? No 10/04/2024 Utilities Answer Date Recorded In the past 12 months, has t he electric, gas, oil or water company threatened to shut off services in your home? No 10/04/2024 Depression Answer Date Recorded Patient Health Questionnaire-2 Score 0 10/04/2024 Internet Access Answer Date Recorded Internet Access Q1 I am not sure 10/04/2024 Internet Access Q2 Not on file 10/04/2024 Sex and Gender Information Value Date Recorded Sex Assigned at Male 05/13/2023 1:55 PM EST Legal Sex Male 1:54 PM EST Gender Identity Male 05/13/2023 1:55 PM EST Sexual Orientation Straight 05/13/2023 1: 55 PM EST Occupation Industry Job Start Date Job End Date [employer] Not on file N ot on file Not on file Last Filed Vital Signs Vital Sign Reading Time Taken Comments Blood Pressure 138/80 03/14/2025 11:20 AM EST Pulse 82 03/14/2025 11:07 AM EST Temperature 36.1 C (96.9 F) 03/14/2025 11:07 AM EST Respiratory Rate 16 03/14/2025 11:07 AM EST Oxygen Saturation 98% 03/14/2025 11:07 AM EST Inhaled Oxygen Concentration - - Weight 75.8 kg (167 lb 3.2 oz) 03/14/2025 11:07 AM EST Height 175.3 cm (5' 9 ) 03/14/2025 11:07 AM EST Body Mass Index 24.69 03/14/2025 11:07 AM EST Plan of Treatment Health Maintenance Due Date Last Done Comments HIV Screening 1990 Family Planning (PISQ) 2005 HPV Vaccines (1 - Male 3-dos e series) 2005 Hepatitis C Screening 2008 DTaP/Tdap/Td Vaccines (1 - Tdap) 2009 Hepatitis B Vaccines (1 of 3 - 19+ 3-dose series) 2009 COVID-19 Vaccine ( - 2024-2 6 season) 2025 Influenza Vaccine (#1) 2025 Alcohol/Substance Use Screening 10/04/2025 10/04/2024 Depression Screening 10/04/2025 10/04/2024, 10/04/2024 Disability Screening 10/04/2025 10/04/2024 SDOH Screening 10/04/2025 10/04/2024 Tobacco Screening 03/14/2026 03/14/2025 Lipid Panel 10/09/2029 10/09/2024 Zoster Vaccines (1 of 2) 2040 RSV Patients and Patients Aged 60 years or older (1 - 1-dose 75+ series) 2065 HIB Vaccines Aged Out No longer eligi ble based on patient's age to complete this topic Hepatitis A Vaccines Aged Out No long er eligible based on patient's age to complete this topic IPV Vaccines Aged Out No longer eligi ble based on patient's age to complete this topic Meningococcal B Vaccine Aged Out No l onger eligible based on patient's age to complete this topic Meningococcal Vaccine Aged Out No elyse samantha eligible based on patient's age to complete this topic Pneumococcal Vaccine: Pediatrics (0 to 5 Years) and At-Risk Patients (6 to 49) Years Aged Out No longer eligible b ased on patient's age to complete this topic RSV under 20 months Aged Out No longe r eligible based on patient's age to complete this topic Rotavirus Vaccines Aged Out No longer eligible based on patient's age to complete this topic Procedures Procedure Name Priority Date/Time Associated Diagnosis Comments LIPID PANEL, STANDARD Routine 10/09/2024 7:59 AM EDT Screening for cholesterol level from Last 3 Months or Most Recently Relevant to Health Maintenance Results * (ABNORMAL) Lipid Panel, Standard (10/09/2024 7:59 AM EDT) Triglycerides 76 <150 mg/dL [facility] Comment:Desirable Triglyceri de: less than 150 mg/dLBorderline High Triglyceride 150-199 mg/dLHigh Triglyceride: 200-499 mg/dLVery High Triglyceride: greater than or equal to 5OO mg/dL Cholesterol 178 <200 mg/dL [facility] Comment:Desirable Cholestero l: less than 200 mg/dLBorderline High Cholesterol: 200-239 mg/dLHigh Cholesterol: greater than 239 mg/dL LDL Cholesterol Calculated 127(H) <100 mg/dL [facility] Comment:Desirable LDL: less than 100 mg/dLNear Optimal/Above Optimal LDL: 110- 129 mg/dLBorderline High LDL: 130-159 mg/dLHigh LDL: 160-189 mg/dLVery High LDL: greater than or equal to 190 mg/dL HDL Cholesterol 36(L) >40 mg/dL [facility] Comment:Desirable HDL: great er than 40 mg/dL Note: This HDL assay may give artificially low results in patients with liver disease. Blood Venous blood specimen / Unknown 10/09/2024 7:59 AM EDT 10/09/2024 7:59 AM EDT us Jack Royal MD LAB BLOOD ORDERABLES Final Resul t [facility] [address] [place] [address] [phone] from Last 3 Months or Most Recently Relevant to Health Maintenance Insurance [facility] 3 Care Teams Route Jumper Relationship Specialty Start Date End Date Name, MD Jack [address] [place] [address] PCP - General Internal Medicine 03/24/25 03/24/26
--- NOTE | 2025-04-05 08:12 | EMG_ITS ---
Chief complaint: Numbness and tingling in hands Referred by: Jamie Garcia MD Procedure done: NCS and EMG of bilateral upper extremities Bilateral median and ulnar motor studies were performed, bilateral median and ulnar mixed sensory studies were performed, and radial sensory studies were performed. EMG needle examination was performed. Findings: Bilateral median motor distal latencies were moderately prolonged. Similar pattern was noted with median mixed distal latencies with significant slowing of conduction velocity. Right ulnar study revealed [id number] slowing across elbow while it was mild on left side. Impression: 1. [id number] bilateral median neuropathy across carpal tunnel 2. 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
== END 2025-04-05 08:01 | disposition home or self-care (01) ==
LOC: HO.NEURO 08:00
PROVIDERS: PCP Internal Medicine Geriatric Medicine; Visit Provider Family Medicine
DX: R20.0 Anesthesia of skin (principal); R20.2 Paresthesia of skin
CPT/HCPCS: 95886; 95911

== ENCOUNTER → 2025-04-05 08:12 | Outpatient (BNV) | payer OTHER, SELFPAY | PROVIDERS: PCP Internal Medicine Geriatric Medicine; Visit Provider Psychiatry & Neurology Neurology | DX: R20.0 Anesthesia of skin (principal); G56.03 Carpal tunnel syndrome, bilateral upper limbs | CPT/HCPCS: 95886; 95911 ==

== ENCOUNTER 2025-04-17 20:21 | Emergency (ER) | payer OTHER, SELFPAY ==
--- NOTE | 2025-04-17 20:23 | ED.GENADULT ---
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 Shaye Cochran HPI narrative: 35-year-old male with no significant past medical history presenting with fever as high as 100.7?, chills, body aches, headache, cough productive of yellow sputum, nausea, vomiting and diarrhea ongoing since about 3:00 a.m. yesterday morning. No known sick contacts or travel. Has been taking Tylenol and Motrin, last dose around 5:00 p.m.. No reported abdominal pain. No reported hematochezia or melena. Has been feeling well prior to this. Related Data Previous Rx's ?Medication ?Instructions ?Recorded amoxicillin 500 mg tablet 500 mg PO TID #30 tabs 01/16/23 codeine 10 mg-guaifenesin 100 mg/5 10 ml PO Q6H PRN cough #237 mL 04/28/23 mL oral liquid ibuprofen 600 mg tablet 600 mg PO Q6H PRN fever or pain 04/28/23 #30 tabs oseltamivir 75 mg capsule (Tamiflu) 75 mg PO BID 5 days #10 caps 04/28/23 doxycycline monohydrate 100 mg 100 mg PO BID #20 caps 05/06/23 capsule ibuprofen 600 mg tablet 600 mg PO Q8H PRN pain #30 tabs 05/06/23 diazepam 5 mg tablet (Valium) 5 mg PO TID PRN muscle spasm #10 09/12/23 tabs ibuprofen 600 mg tablet 600 mg PO Q6H PRN pain #30 tabs 09/12/23 prednisone 20 mg tablet 40 mg (2 x 20 mg) PO DAILY 4 days 09/12/23 #8 tabs ondansetron 4 mg disintegrating 4 mg PO Q8H PRN nausea and 04/18/25 tablet vomiting #10 tabs oseltamivir 75 mg capsule (Tamiflu) 75 mg PO BID 5 days #10 caps 04/18/25 Allergies Allergy/AdvReac Type Severity Reaction Status Date / Time No Known Allergies Allergy Verified 04/17/25 20:28 Review of Systems Review of Systems: as per HPI, full review of systems performed and negative but for the above mentioned pertinent positives and negatives. [facility] Past Medical History Medical History No pertinent past medical history Social History Social History Patient Tobacco Use Status: Never used Tobacco Advance Directives: No Advance Directives Information Provided: No Do you have a plan to hurt others: No Plan Physical Exam ED Exam Exam: GENERAL: Ill-Appearing, appears uncomfortable. SKIN: Normal skin color for ethnicity, warm, dry, no rashes noted. HEENT:? Normocephalic, atraumatic, no stridor, dry mucous membranes, dentition intact, EOMI. NECK: Soft, supple, full ROM, midline structures nontender, no step-offs, no deformities, no lymphadenopathy. CHEST: Heart regular tachycardia, no murmurs, symmetric chest rise and fall. PULMONARY: Clear to auscultation bilaterally, diminished at the bases, no labored breathing, no wheezes/rhales/rhonchi. ABDOMINAL: Soft, nondistended, nontender, positive bowel sounds in all quadrants. : Deferred. MUSCULOSKELETAL: Normal tone, full range of motion, no deformities, no peripheral edema. NEURO: Alert and oriented x3, CN II through XII intact, equal strength and sensation bilateral upper and lower extremities, no focal neurologic deficits.? PSYCHIATRIC: Flat affect, fluid speech, good eye contact and appropriate demeanor. Vital Signs: Vital Signs - 24 hr 04/17/25 20:27 Temperature 98.9 F Pulse Rate 111 H Respiratory Rate 20 Blood Pressure 145/76 H Pulse Oximetry 97 Oxygen Delivery Method Room Air BMI result Body Mass Index 25.5 Course Course Course Narrative: This is a Rapid Medical Examination (RME) performed by Rasta Tijerina PA-C in triage. Full HPI, ROS, assessment and treatment plan per primary provider in the Main ED. Hx: 35 yo M here for eval of fever, chills, body aches, cough, nausea, vomiting, diarrhea, FERREIRA x 0300 today. 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 no sick contacts. Plan: labs, viral swabs Medical Decision Making Medical Decision Making MDM Narrative: Patient presents today with flu-like symptoms. Differential diagnosis includes influenza, coronavirus, pneumonia, upper respiratory infection, among others. Most importantly, this patient is not in any acute respiratory distress. They have normal oxygen levels at room air. Using shared decision-making, patient requesting Tamiflu. He is within the window for treatment. I have discussed medication and other home therapies that will help the patient and have discussed strict return precautions. Instructed that symptoms may worsen and the patient might need re-evaluation or even hospitalization in the future, but did not show signs of this at the time of discharge. Differential Diagnosis Differential Diagnoses: The differential diagnosis associated with the presentation includes (As above) Admission/Observation Consideration of admission/observation: Escalation of care including admission/observation considered Lab Data MDM Lab Attestation statement: I reviewed the patient's lab results. 04/17/25 21:16 04/17/25 21:16 Labs: Lab Results 04/17/25 Range/Units 21:16 WBC 6.8 (4.8-10.8) X10*3/uL RBC 4.94 (4.60-5.80) X10*6/uL Hgb 15.6 (14.0-18.0) g/dl Hct 42.9 (42.0-52.0) % MCV 86.8 (80.0-98.0) fL MCH 31.6 (27.0-33.0) pg MCHC 36.4 H (31.0-36.0) g/dl RDW 12.5 (11.0-16.0) % Plt Count 184 (160-400) X10*3/uL MPV 10.7 (9.4-12.4) fL Immature Gran % (Auto) 0.3 (0.0-0.4) % Neut % (Auto) 66.8 (45-73) % Lymph % (Auto) 11.7 L (20-40) % Menard % (Auto) 18.0 H (2-11) % Eos % (Auto) 2.8 (0-4) % Baso % (Auto) 0.4 (0-2) % Lymph # (Auto) 0.8 L (1.2-4.9) X10*3/uL Menard # (Auto) 1.2 (0.1-1.2) X10*3/uL Eos # (Auto) 0.2 (0.0-0.4) X10*3/uL Baso # (Auto) 0.0 (0.0-0.2) X10*3/uL Abs Immat Gran (auto) 0.02 (0.00-0.03) X10*3/uL Absolute Neuts (auto) 4.6 (2.0-8.3) x10*3/uL Absolute Nucleated RBC 0.000 (0.0-0.012) X10*3/uL Nucleated RBC % (auto) 0.0 (0.0-0.2) /100WBC Sodium 140 (135-145) mmol/L Potassium 3.6 (3.3-5.1) mmol/L Chloride 107 (96-108) mmol/L Carbon Dioxide 25 (22-29) mmol/L Anion Gap 12 (12-20) BUN 14 (9-16) mg/dL Creatinine 0.91 (0.5-1.4) mg/dL Estim Creat Clear Calc 105.9 Estimated GFR > 60 Random Glucose 112 (60-115) mg/dL Calcium 9.2 (8.4-10.2) mg/dL Magnesium 2.0 (1.6-2.6) mg/dL Total Bilirubin 0.6 (0.0-1.0) mg/dL AST 27 (5-37) U/L ALT 41 H (0-40) U/L Alkaline Phosphatase 69 (39-117) U/L Total Protein 7.0 (6.5-8.0) g/dL Albumin 4.7 (3.5-5.0) g/dL Influenza Type A (PCR) POSITIVE A (Negative) Influenza Type B (PCR) NEGATIVE (Negative) RSV RNA Qual (PCR) NEGATIVE (Negative) SARS-CoV-2 RNA (RT-PCR) NEGATIVE (Negative) Independent Historian Clinical information obtained from an independent historian. History obtained from or confirmed by: Spouse External Record Review External record reviewed: Inpatient record Prescription Management I considered prescription management with: Antiviral Discharge Plan Discharge Clinical Impression: Influenza A Patient Disposition: Home, Self-Care Instructions: Influenza (ED) Additional Instructions: Keep your mask on if you have to go into public for any reason while you are ill. Use Tylenol and Motrin around the clock for fever and body aches. Use Zofran (ondansetron) as needed for nausea. Take Tamiflu for the next 5 days. Return to the emergency department with any new or worsening symptoms including: Worsening shortness of breath, continued fevers despite medications, inability to tolerate food or drink. Call 911 with any medical emergency. Mantenga puesta la mascarilla si necesita salir a la dc por cualquier motivo mientras est? enfermo. [place] Tylenol y Motrin cada pocas horas para la fiebre y los franko corporales. Use Zofran (ondansetr?n) seg?n sea necesario para las n?useas. [place] Tamiflu lashonda los pr?ximos 5 d?as. Regrese a la linda de emergencias si presenta s?ntomas nuevos o que empeoran, incluyendo: dificultad para respirar que empeora, fiebre persistente a pesar de los medicamentos, o incapacidad para tolerar alimentos o l?quidos. Llame al 911 en antoinette de cualquier emergencia m?dica. Prescriptions: New oseltamivir [Tamiflu] 75 mg capsule 75 mg PO BID 5 Days Qty: 10 0RF ondansetron 4 mg tablet,disintegrating 4 mg PO Q8H PRN (Reason: nausea and vomiting) Qty: 10 0RF No Action doxycycline monohydrate 100 mg capsule 100 mg PO BID Qty: 20 0RF ibuprofen 600 mg tablet 600 mg PO Q8H PRN (Reason: pain) Qty: 30 0RF amoxicillin 500 mg tablet 500 mg PO TID Qty: 30 0RF codeine-guaifenesin 10-100 mg/5 mL liquid 10 ml PO Q6H PRN (Reason: cough) Qty: 237 0RF ibuprofen 600 mg tablet 600 mg PO Q6H PRN (Reason: fever or pain) Qty: 30 0RF oseltamivir [Tamiflu] 75 mg capsule 75 mg PO BID 5 Days Qty: 10 0RF prednisone 20 mg tablet 40 mg PO DAILY 4 Days Qty: 8 0RF ibuprofen 600 mg tablet 600 mg PO Q6H PRN (Reason: pain) Qty: 30 0RF diazepam [Valium] 5 mg tablet 5 mg PO TID PRN (Reason: muscle spasm) Qty: 10 0RF Rx Instructions: partial fill is okay Stand Alone Forms: Work/School Release Print Language: Latvian
[2025-04-17 20:27] VITALS: BP 145/76; PULSE 111; RESP 20; TEMP 37.2; O2SAT 97; BMI 25.5
[2025-04-17 21:22] LABS: MANUAL DIFF FLAG NO
[2025-04-17 21:36] LABS: Alanine Aminotransferase 41 U/L (0-40); Albumin Level 4.7 g/dL (3.5-5.0); Alkaline Phosphatase 69 U/L (39-117); Anion Gap 12 (12-20); Aspartate Amino Transferase 27 U/L (5-37); Blood Urea Nitrogen 14 mg/dL (9-16); Calcium 9.2 mg/dL (8.4-10.2); Carbon Dioxide 25 mmol/L (22-29); Chloride 107 mmol/L (96-108); Creatinine Clr Calc Pharmacy 105.9; Estimated Glomerular Filt Rate > 60; Magnesium 2.0 mg/dL (1.6-2.6); Potassium 3.6 mmol/L (3.3-5.1); Sodium 140 mmol/L (135-145); Total Protein 7.0 g/dL (6.5-8.0)
[2025-04-17 21:39] LABS: Hematocrit 42.9 % (42.0-52.0); Hemoglobin 15.6 g/dl (14.0-18.0); Imm Gran Abs Auto 0.02 X10*3/uL (0.00-0.03); Imm Gran Pct Auto 0.3 % (0.0-0.4); Lymphocytes Absolute Auto 0.8 X10*3/uL (1.2-4.9); Mean Corpuscular HGB Conc 36.4 g/dl (31.0-36.0); Mean Corpuscular Hemoglobin 31.6 pg (27.0-33.0); Mean Corpuscular Volume 86.8 fL (80.0-98.0); NRBC Abs Auto 0.000 X10*3/uL (0.0-0.012); NRBC Pct Auto 0.0 /100WBC (0.0-0.2); Platelet Count 184 X10*3/uL (160-400); Red Blood Count 4.94 X10*6/uL (4.60-5.80); White Blood Count 6.8 X10*3/uL (4.8-10.8)
[2025-04-17 22:06] LABS: Resp Syncy Virus RNA Qual PCR NEGATIVE (Negative); SARS COV2 PCR INHOUSE NEGATIVE (Negative)
--- OUTSIDE RECORDS SUMMARY | 2025-04-18 00:47 | XMS_ITS | Clinical Summary ---
Author Organization [employer] Address [address] [place] [address] Care Team Providers Care Cell Pourer Name Role Phone Name, Jack BROUSSARD Primary Care Provider [phone] Allergies No known active allergies Medications cyclobenzaprine (Flexeril) 10 MG tabletIndicatio ns:Acute right-sided [...] by MD. 30 patch 11 5 Active ibuprofen 800 MG tabletIndicatio ns:Acute right-sided low back pain with right-sided sciatica Take 1 tablet (800 mg) by mouth every 8 (eight) hours if needed for moderate pain or fever. 30 tablet 5 04/07/20 25 Active Problems Problem Noted Date Diagnosed Date Chronic back pain 03/15/2025 Assessment & Plan (03/15/2025 10:00 AM EST): - with right side radiculopathy, also possible right SI joint dysfunction - X-ray in October 2024: Mild disc space narrowing at L5-S1 - Patient was advised to contact PT to schedule appointment - Patient has already been referred to [facility] for back pain. - Since the [...] Encounters Date Type Department Care Team Description 04/11/2025 Telephone [facility] [place] [place] [address] Bing Camara, GRACIE 04/08/2025 Telephone [facility] [place] [address] Bing Camara RN 04/07/2025 Telephone [facility] [place] [place] [address] Jack Royal MD Durable Medical Equipment 04/06/2025 Orders Only [facility] [place] [address] Alva Garcia MD Numbness and tingling of hand (Primary Dx); Bilateral carpal tunnel syndrome 03/25/2025 Telephone [facility] [place] [address] Jack Royal MD CHARTPREP 03/24/2025 [facility] [place] [address] Alva Garcia MD 03/17/2025 Telephone [facility] [place] [place] [address] Kamla Hooks MA Appointment Request 03/17/2025 Telephone [place] [facility] [place] [address] Alva Garcia MD MRI LUMBAR SPINE 03/14/2025 11:00 AM EST Office Visit [facility] [place] [address] Alva Garcia MD Chronic right-sided low back pain with right-sided sciatica (Primary Dx); Elevated BP without diagnosis of hypertension; Numbness and tingling of hand 03/14/2025 Travel 03/14/2025 Telephone [facility] [address] [place] [phone] Kamla Hooks [place] [facility] Cancelled Appt (Provider out ) 03/11/2025 Telephone [facility] [address] [place] [address] Kamla Hooks MA chart prep 2025 1:00 PM EST Office Visit [facility] [address] [place] [address] [phone] Shelli Pepe MD Acute right-sided low back [...] Procedure Name Priority Date/Time Associated Diagnosis Comments CBC WITH AUTO DIFFERENTIAL Routine 04/17/2025 9:16 PM EST Numbness and tingling of hand MAGNESIUM Routine 04/17/2025 9:16 PM EST Numbness and tingling of hand COMPREHENSIVE METABOLIC PANEL Routine 04/17/2025 9:16 PM EST Numbness and tingling of hand SARS COV2/INFLUENZA A/B AND RSV RNA QL NAAT Routine 04/17/2025 9:16 PM EST Numbness and tingling of hand LIPID PANEL, STANDARD Routine 10/09/2024 7:59 AM EDT Screening for cholesterol level from Last 3 Months or Most Recently Relevant to Health Maintenance Results * (ABNORMAL) SARS-CoV-2 RNA, Influenza A/B, and RSV RNA, Ql NAAT (04/17/2025 9:16 PM EST) Pathologist [facility] Influenza A PCR POSITIVE(A) Negative [facility] Influenza B PCR NEGATIVE Negative [facility] Resp Syncy Virus RNA Qual PCR NEGATIVE Negative [facility] SARS COV2 PCR NEGATIVE Negative [facility] Comment:All test results mus t be correlated with clinical findings.Negative results do not preclude SARS-CoV2, influenza Avirus, influenza B virus and/or RSV infectionand should not be used as the sole basis for treatment orother patient management decisions. Negative results must becombined with clinical observations, patient history, andepidemiological information.This test has not been evaluated for monitoring treatment ofinfection.This test has been authorized by the FDA under an EmergencyUse Authorization (EUA) for use by authorized laboratories.Testing performed on the [employer] GeneXpert utilizingreal-time RT-PCR.All SARS CoV2 and positive influenza A/B results arereported to [facility]. 04/17/2025 9:16 PM EST 04/17/2025 9:20 PM EST us Generic External Data Provider LAB MICROBIOLOGY - GENERAL ORDERABLES Final Result [facility] [address] [place] [phone] * (ABNORMAL) CBC auto differential (04/17/2025 9:16 PM EST) [facility] White Blood Count 6.8 4.8 - 10.8 X10*3/uL [facility] Red Blood Count 4.94 4.60 - 5.80 X10*6/uL [facility] Hemoglobin 15.6 14.0 - 18.0 g/dl [facility] Hematocrit 42.9 42.0 - 52.0 % [facility] Mean Corpuscular Volume 86.8 80.0 - 98.0 fL [facility] Mean Corpuscular Hemoglobin 31.6 27.0 - 33.0 pg [facility] Mean Corpuscular HGB Conc 36.4(H) 31.0 - 36.0 g/dl [facility] Red Cell Distribution Width 12.5 11.0 - 16.0 % [facility] Platelet Count 184 160 - 400 X10*3/uL [facility] Mean Platelet Volume 10.7 9.4 - 12.4 fL [facility] Neutrophils Percent Auto 66.8 45 - 73 % [facility] Imm Gran Pct Auto 0.3 0.0 - 0.4 % [facility] Lymphocytes Percent Auto 11.7(L) 20 - 40 % [facility] Monocytes Percent Auto 18.0(H) 2 - 11 % [facility] Eosinophils Percent Auto 2.8 0 - 4 % [facility] Basophils Percent Auto 0.4 0 - 2 % [facility] NRBC Pct Auto 0.0 0.0 - 0.2 /100WBC [facility] Neutrophils Absolute Auto 4.6 2.0 - 8.3 x10*3/uL [facility] Imm Gran Abs Auto 0.02 0.00 - 0.03 X10*3/uL [facility] Lymphocytes Absolute Auto 0.8(L) 1.2 - 4.9 X10*3/uL [facility] Monocytes Absolute Auto 1.2 0.1 - 1.2 X10*3/uL [facility] Eosinophils Absolute Auto 0.2 0.0 - 0.4 X10*3/uL [facility] Basophils Absolute Auto 0.0 0.0 - 0.2 X10*3/uL [facility] NRBC Abs Auto 0.000 0.0 - 0.012 X10*3/uL [facility] 04/17/2025 9:16 PM EST 04/17/2025 9:20 PM EST us Generic External Data Provider LAB BLOOD ORDERAB LES Final Result [facility] [address] [place] [phone] * Magnesium (04/17/2025 9:16 PM EST) Magnesium 2.0 1.6 - 2.6 mg/dL [facility] 04/17/2025 9:16 PM EST 04/17/2025 9:20 PM EST us Generic External Data Provider LAB BLOOD ORDERAB LES Final Result [facility] [address] [place] [phone] * (ABNORMAL) Comprehensive Metabolic Panel (04/17/2025 9:16 PM EST) Sodium 140 135 - 145 mmol/L [facility] Potassium 3.6 3.3 - 5.1 mmol/L [facility] Chloride 107 96 - 108 mmol/L [facility] Carbon Dioxide 25 22 - 29 mmol/L [facility] Anion Gap 12 12 - 20 [facility] Urea Nitrogen (BUN) 14 9 - 16 mg/dL [facility] Creatinine, Serum 0.91 0.5 - 1.4 mg/dL [facility] Creatinine Clr Calc Pharmacy 105.9 [facility] Comment:eGFR (calculated fro m the MDRD study equation) and eCrCl(calculated from the Cockcroft-Gault equation) are based ondifferent parameters and may not yield comparable results.If eCrCl result is absurd, please check patient'sheight/weight. Estimated Glomerular Filt Rate >60 [facility] Comment:Chronic Kidney Disea se: Estimated GFR < 60 mL/min/1.47s6Qnngdl Kidney Disease: Estimated GFR < 15 mL/min/1.73m2 Glucose 112 60 - 115 mg/dL [facility] Calcium 9.2 8.4 - 10.2 mg/dL [facility] Bilirubin, Total 0.6 0.0 - 1.0 mg/dL [facility] Aspartate Amino Transferase 27 5 - 37 U/L [facility] Alanine Aminotransferase 41(H) 0 - 40 U/L [facility] Total Protein 7.0 6.5 - 8.0 g/dL [facility] Albumin Level 4.7 3.5 - 5.0 g/dL [facility] Alkaline Phosphatase 69 39 - 117 U/L [facility] 04/17/2025 9:16 PM EST 04/17/2025 9:20 PM EST us Generic External Data Provider LAB BLOOD ORDERAB LES Final Result Performing Organization Address [facility] Co de Phone Number [facility] [address] [place] [phone] * (ABNORMAL) Lipid Panel, Standard (10/09/2024 7:59 AM EDT) Triglycerides 76 <150 mg/dL [facility] Comment:Desirable Triglyceri de: less than 150 mg/dLBorderline High Triglyceride 150-199 mg/dLHigh Triglyceride: 200-499 mg/dLVery High Triglyceride: greater than or equal to 5OO mg/dL Cholesterol 178 <200 mg/dL [facility] Comment:Desirable Cholestero l: less than 200 mg/dLBorderline High Cholesterol: 200-239 mg/dLHigh Cholesterol: greater than 239 mg/dL LDL Cholesterol Calculated 127(H) <100 mg/dL [facility] Comment:Desirable LDL: less than 100 mg/dLNear Optimal/Above Optimal LDL: 110- 129 mg/dLBorderline High LDL: 130-159 mg/dLHigh LDL: 160-189 mg/dLVery High LDL: greater than or equal to 190 mg/dL HDL Cholesterol 36(L) >40 mg/dL [facility] Comment:Desirable HDL: great er than 40 mg/dL Note: This HDL assay may give artificially low results in patients with liver disease. Blood Venous blood specimen / Unknown 10/09/2024 7:59 AM EDT 10/09/2024 7:59 AM EDT us Jack Royal MD LAB BLOOD ORDERABLES Final Resul t Performing Organization Address City/[facility]/ZIP Co de Phone Number [facility] [address] [place] [phone] from Last 3 Months or Most Recently Relevant to Health Maintenance Insurance [facility] 3 Care Teams Cell Pourer Relationship Specialty Start Date End Date Name, MD Jack [address] [place] [address] PCP - General Internal Medicine 03/24/25 03/24/26
[2025-04-18 01:11] VITALS: BP 121/75; PULSE 98; RESP 14; TEMP 36.8; O2SAT 98
[2025-04-18 01:19] VITALS: BP 121/75; PULSE 98; RESP 14; TEMP 36.8; O2SAT 98
== END 2025-04-18 01:19 | disposition home or self-care (01) ==
PROVIDERS: Physician Assistant Medical; Emergency Provider Emergency Medicine; PCP Internal Medicine Geriatric Medicine
DX: J10.1 Influenza due to other identified influenza virus with other respiratory manifestations (principal); Z03.818 Encounter for observation for suspected exposure to other biological agents ruled out; R05.9 Cough, unspecified; R50.9 Fever, unspecified; R11.2 Nausea with vomiting, unspecified; R19.7 Diarrhea, unspecified
CPT/HCPCS: 80053; 83735; 85025; 87637; 99283; 99284

== ENCOUNTER 2025-04-18 16:46 | Outpatient (RCR) | payer OTHER, SELFPAY | END 2025-04-25 13:35 | disposition home or self-care (01) | LOC: HO.PT 16:46 | PROVIDERS: PCP Internal Medicine Geriatric Medicine; Visit Provider Family Medicine | DX: M54.41 Lumbago with sciatica, right side (principal) | CPT/HCPCS: 97110; 97112; 97140; 97161 ==

== ENCOUNTER 2025-04-21 10:59 | Outpatient (AMB) | payer OTHER, SELFPAY ==
--- NOTE | 2025-04-21 11:01 | MHC.OFFVIS ---
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 Patient was referred by [facility] 03/08/25 at their visit he reports that he has had lower back pain for 15years, ever since he moved from [place]. Patient noted that the lower back pain radiates into the right leg, numbness/tingling. At today's visit he states that the lower back pain is radiating down the leg. Scout Executive Required: Yes Scout Executive Services: Scout Executive Present Scout Executive Name: Cynthia thornton son Allergies No Known Allergies Allergy (Verified 04/17/25 20:28) HPI Comments Details: Chronic lower back pain, mainly right-sided. Radiates down to right leg. Denies numbness in right leg. Currently in physical therapy but no adequate relief yet. Total of 10 sessions have not scheduled. Lumbar x-ray shows minimal disc space narrowing at L5-S1. Pain score 10/10 when severe. MRI already scheduled on 04/30. 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 RT Hand. Review of Systems Const All systems reviewed & are unremarkable except as noted in HPI and below Physical Exam Exam Exam: Constitutional: Patient appears to be in no acute distress, well nourished and well developed. Patient was appropriately conversant and oriented. Good historian. MSK: No specific abnormalities found on inspection of the spine and all extremities. He indicates that tenderness over lumbar spine and paraspinals. But there is also tenderness over right SI joint. Lumbar ROM was full. Bilateral hip, knee and ankle ROM WNL. No ligamentous laxity or crepitance. No increased effusion. Straight-leg raising test negative. FABERE test positive right. Strength is 5/5 in all muscle groups tested. No increased tone noted. Neurological: Neurologic examination of the upper and lower extremities was nonfocal with intact sensation, muscle stretch reflexes and without focal motor deficits . Lynn?s negative bilaterally. Babinski was down going bilaterally. Clonus was negative. Gait is non-antalgic without loss of balance. Vital Signs: BMI result Body Mass Index 25.8 Results Reviewed Results Reviewed: Ordering Physician: Jack Royal MD Date of Service: 10/04/24 Procedure(s): XR lumbar spine 2-3V Accession Number(s): [id number] cc: Name,Jack BROUSSARD~ EXAMINATION: XR LUMBAR SPINE 2-3 VIEWS HISTORY: PAIN COMPARISON: There are no prior studies for comparison. FINDINGS: AP, lateral, and coned down views of the lumbar spine are submitted. Osseous mineralization is normal. Five nonrib-bearing lumbar vertebral bodies are identified, maintaining normal height and alignment without evidence of fracture or spondylolisthesis. There is mild disc space narrowing at L5-S1. The remaining intervertebral disc spaces are maintained. The posterior elements are intact. The visualized paraspinal soft tissues are unremarkable. XR/XR lumbar spine 2-3V IMPRESSION: Mild disc space narrowing at L5-S1. Electronically signed by: Tino Hahn MD 10/04/2024 03:35 PM EDT RP Ordering Physician: Generic ED Physician Date of Service: 09/12/23 Procedure(s): XR hip LT min 2V Accession Number(s): [id number] cc: Generic ED Physician; Physician,None ~ EXAMINATION: XR HIP, LEFT XR FEMUR, LEFT CLINICAL INFORMATION: Pain. COMPARISON: None available. TECHNIQUE: AP and frog-leg lateral views of the left hip. AP and lateral views of the left femur were obtained. FINDINGS: Bony alignment and mineralization are normal. The bilateral acetabular joint spaces are symmetric and well-maintained. The femoral heads are smooth. The sacroiliac joints are symmetric and well-maintained. The pubic symphysis is intact. The femur shows no fracture or dislocation. There is no abnormal bone erosion or periosteal thickening. The joint spaces of the knee are well-maintained. XR/XR hip LT min 2V IMPRESSION: Normal pelvis, left hip and left femur radiographs. EMG done by Dr. Shea 04/05/2025 reported bilateral Carpal Tunnel Syndrome and ulnar neuropathy. Reviewed notes from ER. Positive influenza a 04/17/2025. Assessment & Plan Assessment & Plan (1) Lumbar radiculitis: Code(s): M54.16 - Radiculopathy, lumbar region Category: Medical (2) Sacroiliac joint dysfunction of right side: Code(s): M53.3 - Sacrococcygeal disorders, not elsewhere classified Category: Medical Plan Chronic right-sided lower back pain, radicular to the right leg. Lumbar radiculitis from disc herniation versus SI joint dysfunction? MRI scheduled 04/30. Continue physical therapy. We may consider injections depending on MRI results. Tested positive influenza a 04/17/2025 at the ER. He is not exhibiting any signs of distress. Patient advised to go home, hydrate and rest. Assessment and plan discussed with patient, and patient was agreeable. All questions were answered thoroughly. Aimee Gaitan MD, PHIL Board Certified, [place] Board [employer] and Rehabilitation (ABPMR) Board Certified, [place] Board of Electrodiagnostic Medicine (ABEM) Medications: Discontinued diazepam (Valium) partial fill is okay Discontinued Reason: Patient no longer taking 5 mg PO TID PRN 10 tabs 0RF muscle spasm Coding Level of Care Code New Pt Level 4 (81517) Diagnoses Lumbar radiculitis M54.16 Sacroiliac joint dysfunction of right side M53.3
[2025-04-21 11:07] VITALS: BMI 25.8
--- OUTSIDE RECORDS SUMMARY | 2025-04-21 14:19 | XMS_ITS | Clinical Summary ---
Author Organization [facility] Address [address] [place] [address] Care Team Providers Care Rigging Worker Name Role Phone Unavailable Primary Care Provider Unavailabl e Social History Tobacco Use Types Packs/Day Years Used Date Smoking Tobacco: Never Assessed Sex and Gender Information Value Date Recorded Sex Assigned at Not on file Legal Sex Male 10:49 PM EST Gender Identity Not on file Sexual Orientation Not on file Plan of Treatment Health Maintenance Due Date Last Done Comments DTaP,Tdap,and Td Vaccines (1 - Tdap) 2009 Hepatitis B Vaccines (1 of 3 - 19+ 3-dose series) 2009 HPV Vaccines (1 - 3-dose SCD M series) 2017 Depression Screening 05/05/2024 COVID-19 Vaccine (1 - 2024-2 6 season) 2025 Influenza Vaccine (#1) 2025 RSV Immunization Adult Patie nts (1 - 1-dose 75+ series) 2065 HIB Vaccines Aged Out No longer eligi ble based on patient's age to complete this topic Hepatitis A Vaccines Aged Out No long er eligible based on patient's age to complete this topic IPV Vaccines Aged Out No longer eligi ble based on patient's age to complete this topic MMR Vaccines Aged Out No longer eligi ble based on patient's age to complete this topic Meningococcal ACWY Vaccine Aged Out N o longer eligible based on patient's age to complete this topic Meningococcal B Vaccine Aged Out No l onger eligible based on patient's age to complete this topic Pneumococcal Vaccine: Pediat rics (0 to 5 Years) and At-Risk Patients (6 to 49 Years) Aged Out No longer eligible b ased on patient's age to complete this topic RSV Immunization Patients Un zachary 20 months Aged Out No longer eligible b ased on patient's age to complete this topic Varicella Vaccines Aged Out No longer eligible based on patient's age to complete this topic
--- OUTSIDE RECORDS SUMMARY | 2025-04-21 14:19 | XMS_ITS | Clinical Summary ---
Author Organization [employer] Address [address] [place] [address] Care Team Providers Care Network Pricing Consultant Name Role Phone Name, Jack BROUSSARD Primary Care Provider [phone] Allergies No known active allergies Medications cyclobenzaprine [...] - Patient has already been referred to [facility] for back pain. - Since the [...] Type Department Care Team Description 04/11/2025 Telephone [facility] [place] [address] Bing Camara, GRACIE 04/08/2025 Telephone [facility] [place] [address] Bing Camara RN 04/07/2025 Telephone [facility] [place] [place] [address] Jack Royal MD Durable Medical Equipment 04/06/2025 Orders Only [facility] [place] [address] Alva Garcia MD Numbness and tingling of hand (Primary Dx); Bilateral carpal tunnel syndrome 03/25/2025 Telephone [facility] [place] [address] Jack Royal MD CHARTPREP 03/24/2025 [facility] Information [facility] [place] [address] Alva Garcia MD 03/17/2025 Telephone [facility] [place] [address] Kamla Hooks [place] Appointment Request 03/17/2025 Telephone [place] [facility] [place] [address] Alva Garcia MD MRI LUMBAR SPINE 03/14/2025 11:00 AM EST Office Visit [facility] [place] [address] Alva Garcia MD Chronic right-sided low back pain with right-sided sciatica (Primary Dx); Elevated BP without diagnosis of hypertension; Numbness and tingling of hand 03/14/2025 Travel 03/14/2025 Telephone [facility] [address] [place] [phone] Kamla Hooks [place] [facility] Cancelled Appt (Provider out ) 03/11/2025 Telephone [facility] [address] [place] [address] Kamla Hooks [place] chart prep 2025 1:00 PM EST Office Visit [facility] [address] [place] [address] [phone] Shelli Pepe MD Acute right-sided low back [...] Ql NAAT (04/17/2025 9:16 PM EST) Pathologist [facility] Influenza A PCR POSITIVE(A) Negative [facility] Influenza B PCR NEGATIVE Negative [facility] Resp Syncy Virus RNA Qual PCR NEGATIVE Negative [facility] SARS COV2 PCR NEGATIVE Negative [facility] Comment:All test results mus t [...] use by authorized laboratories.Testing performed on the [employer] GeneXpert utilizingreal-time RT-PCR.All SARS CoV2 and positive influenza A/B results arereported to [facility]. 04/17/2025 9:16 PM EST 04/17/2025 9:20 PM EST us Generic External Data Provider LAB MICROBIOLOGY - GENERAL ORDERABLES Final Result [facility] [address] [place] [phone] * (ABNORMAL) CBC auto differential (04/17/2025 9:16 PM EST) [facility] White Blood Count 6.8 4.8 - 10.8 X10*3/uL [facility] Red Blood Count 4.94 4.60 - 5.80 X10*6/uL [facility] Hemoglobin 15.6 14.0 - 18.0 g/dl [facility] Hematocrit 42.9 42.0 - 52.0 % [facility] Mean Corpuscular Volume 86.8 80.0 - 98.0 fL [facility] Mean Corpuscular Hemoglobin 31.6 27.0 - 33.0 pg [facility] Mean Corpuscular HGB Conc 36.4(H) 31.0 - 36.0 g/dl [facility] Red Cell Distribution Width 12.5 11.0 - 16.0 % [facility] Platelet Count 184 160 - 400 X10*3/uL [facility] Mean Platelet Volume 10.7 9.4 - 12.4 fL [facility] Neutrophils Percent Auto 66.8 45 - 73 % [facility] Imm Gran Pct Auto 0.3 0.0 - 0.4 % [facility] Lymphocytes Percent Auto 11.7(L) 20 - 40 % [facility] Monocytes Percent Auto 18.0(H) 2 - 11 % [facility] Eosinophils Percent Auto 2.8 0 - 4 % [facility] Basophils Percent Auto 0.4 0 - 2 % [facility] NRBC Pct Auto 0.0 0.0 - 0.2 /100WBC [facility] Neutrophils Absolute Auto 4.6 2.0 - 8.3 x10*3/uL [facility] Imm Gran Abs Auto 0.02 0.00 - 0.03 X10*3/uL [facility] Lymphocytes Absolute Auto 0.8(L) 1.2 - 4.9 X10*3/uL [facility] Monocytes Absolute Auto 1.2 0.1 - 1.2 X10*3/uL [facility] Eosinophils Absolute Auto 0.2 0.0 - 0.4 X10*3/uL [facility] Basophils Absolute Auto 0.0 0.0 - 0.2 X10*3/uL [facility] NRBC Abs Auto 0.000 0.0 - 0.012 X10*3/uL [facility] 04/17/2025 9:16 PM EST 04/17/2025 9:20 PM EST us Generic External Data Provider LAB BLOOD ORDERAB LES Final Result [facility] [address] [place] [phone] * Magnesium (04/17/2025 9:16 PM EST) Magnesium 2.0 1.6 - 2.6 mg/dL [facility] 04/17/2025 9:16 PM EST 04/17/2025 9:20 PM EST us Generic External Data Provider LAB BLOOD ORDERAB LES Final Result [facility] [address] [place] [phone] * (ABNORMAL) Comprehensive Metabolic Panel (04/17/2025 9:16 PM EST) Sodium 140 135 - 145 mmol/L [facility] Potassium 3.6 3.3 - 5.1 mmol/L [facility] Chloride 107 96 - 108 mmol/L [facility] Carbon Dioxide 25 22 - 29 mmol/L [facility] Anion Gap 12 12 - 20 [facility] Urea Nitrogen (BUN) 14 9 - 16 mg/dL [facility] Creatinine, Serum 0.91 0.5 - 1.4 mg/dL [facility] Creatinine Clr Calc Pharmacy 105.9 [facility] Comment:eGFR (calculated fro m the MDRD study equation) and eCrCl(calculated from the Cockcroft-Gault equation) are based ondifferent parameters and may not yield comparable results.If eCrCl result is absurd, please check patient'sheight/weight. Estimated Glomerular Filt Rate >60 [facility] Comment:Chronic Kidney Disea se: Estimated GFR < 60 mL/min/[id number] Kidney Disease: Estimated GFR < 15 mL/min/1.73m2 Glucose 112 60 - 115 mg/dL [facility] Calcium 9.2 8.4 - 10.2 mg/dL [facility] Bilirubin, Total 0.6 0.0 - 1.0 mg/dL [facility] Aspartate Amino Transferase 27 5 - 37 U/L [facility] Alanine Aminotransferase 41(H) 0 - 40 U/L [facility] Total Protein 7.0 6.5 - 8.0 g/dL [facility] Albumin Level 4.7 3.5 - 5.0 g/dL [facility] Alkaline Phosphatase 69 39 - 117 U/L [facility] 04/17/2025 9:16 PM EST 04/17/2025 9:20 PM EST us Generic External Data Provider LAB BLOOD ORDERAB LES Final Result Performing Organization Address [facility] Co de Phone Number [facility] [address] [place] [phone] * (ABNORMAL) Lipid Panel, Standard (10/09/2024 7:59 AM EDT) Triglycerides 76 <150 mg/dL [facility] Comment:Desirable Triglyceri de: less than 150 mg/dLBorderline High Triglyceride 150-199 mg/dLHigh Triglyceride: 200-499 mg/dLVery High Triglyceride: greater than or equal to 5OO mg/dL Cholesterol 178 <200 mg/dL [facility] Comment:Desirable Cholestero l: less than 200 mg/dLBorderline High Cholesterol: 200-239 mg/dLHigh Cholesterol: greater than 239 mg/dL LDL Cholesterol Calculated 127(H) <100 mg/dL [facility] Comment:Desirable LDL: less than 100 mg/dLNear Optimal/Above Optimal LDL: 110- 129 mg/dLBorderline High LDL: 130-159 mg/dLHigh LDL: 160-189 mg/dLVery High LDL: greater than or equal to 190 mg/dL HDL Cholesterol 36(L) >40 mg/dL [facility] Comment:Desirable HDL: great er than 40 mg/dL Note: This HDL assay may give artificially low results in patients with liver disease. Blood Venous blood specimen / Unknown 10/09/2024 7:59 AM EDT 10/09/2024 7:59 AM EDT us Jack Royal MD LAB BLOOD ORDERABLES Final Resul t Performing Organization Address City/[facility]/ZIP Co de Phone Number [facility] [address] [place] [phone] from Last 3 Months or Most Recently Relevant to Health Maintenance Insurance [facility] 3 Care Teams Network Pricing Consultant Relationship Specialty Start Date End Date Name, MD [address] [place] [address] PCP - General Internal Medicine 03/24/25 03/24/26
== END 2025-04-21 12:11 | disposition home or self-care (01) ==
LOC: HO.HOS 11:00
PROVIDERS: PCP Internal Medicine Geriatric Medicine; Visit Provider Physical Medicine & Rehabilitation
DX: M54.16 Radiculopathy, lumbar region (principal); M53.3 Sacrococcygeal disorders, not elsewhere classified
CPT/HCPCS: 99204

== ENCOUNTER → 2025-04-21 10:59 | Outpatient (BNVA) | payer OTHER, SELFPAY | PROVIDERS: PCP Internal Medicine Geriatric Medicine; Visit Provider Physical Medicine & Rehabilitation | DX: M53.3 Sacrococcygeal disorders, not elsewhere classified (principal); M54.16 Radiculopathy, lumbar region | CPT/HCPCS: 99202 ==

== ENCOUNTER → 2025-04-30 09:16 | Outpatient (BNV) | payer OTHER, SELFPAY | PROVIDERS: PCP Internal Medicine Geriatric Medicine; Visit Provider Radiology Diagnostic Radiology | DX: M51.360 Other intervertebral disc degeneration, lumbar region with discogenic back pain only (principal) | CPT/HCPCS: 72148 ==

== ENCOUNTER 2025-04-30 09:22 | Outpatient (REF) | payer OTHER, SELFPAY ==
--- NOTE | ~2025-04-30 | MR_ITS ---
EXAMINATION: MR LUMBAR SPINE WITHOUT CONTRAST CLINICAL INFORMATION: Lumbar: with right-sided sciatica. An irregular back pain. COMPARISON: Lumbar spine x-rays 10/04/2024. TECHNIQUE: MRI of the lumbar spine was obtained using routine sequences without contrast. FINDINGS: There is normal lumbar lordosis. The vertebral heights and alignment is normal. There is mild disc desiccation changes with loss of disc height at L4-5 and L5-S1 disc level. Rest of the discs heights and disc signal is preserved. The T12-L1 disc level appears unremarkable. The L1-2, L2-3 and L3-4 disc level appears unremarkable. The neural foramina are widely patent. At L4-5 disc level is a broad-based diffuse bulge with flattening of ventral thecal sac and mild AP canal narrowing. Mild bilateral narrowing of neural foramina from diffuse bulge is noted. At L5-S1 disc level there is central and left paracentral disc bulge flattening of the ventral thecal sac but no spinal canal stenosis. There is bilateral moderate narrowing of neural foramina. The bone marrow signal, paravertebral soft tissues and intraspinal signal is normal. MR/MR lumbar spine wo con IMPRESSION: Degenerative disc changes with loss of disc height and moderate diffuse bulge of the L4-5 and L5-S1 disc level. There is mild AP canal stenosis at L4-5 disc level. Bilateral narrowing of neural foramina is noted at both these disc levels Electronically signed by: Michael Islas MD 05/02/2025 07:[address] [facility]
--- OUTSIDE RECORDS SUMMARY | 2025-04-30 09:28 | XMS_ITS | Clinical Summary ---
Author Organization [facility] Address [address] [place] [address] Care Team Providers Care Rn Medicare Name Role Phone Unavailable Primary Care Provider [...]
--- OUTSIDE RECORDS SUMMARY | 2025-04-30 09:28 | XMS_ITS | Clinical Summary ---
Author Organization [email or web address] Address [address] [facility] [address] [place] [address] Care Team Providers Care Batch Dumper Name Role Phone Name, Jack BROUSSARD Primary Care Provider [phone] Allergies No known active allergies Medications cyclobenzaprine [...] has already been referred to [facility] Ortho for back pain. - Since the [...] Type Department Care Team Description 04/11/2025 Telephone [facility] [place] [place] [address] Bing Camara, GRACIE 04/08/2025 Telephone [facility] [place] [address] Bing Camara RN 04/07/2025 Telephone [facility] [place] [place] [address] Jack Royal MD Durable Medical Equipment 04/06/2025 Orders Only [facility] [place] [address] Alva Garcia MD Numbness and tingling of hand (Primary Dx); Bilateral carpal tunnel syndrome 03/25/2025 Telephone [facility] [place] [address] Jack Royal MD CHARTPREP 03/24/2025 [facility] Health Information Management [facility] [place] [address] Alva Garcia MD 03/17/2025 Telephone [facility] [place] [place] [address] Kamla Hooks [place] Appointment Request 03/17/2025 Telephone [place] [facility] [place] [address] Alva Garcia MD MRI LUMBAR SPINE 03/14/2025 11:00 AM EST Office Visit [facility] [place] [address] Alva Garcia MD Chronic right-sided low back pain with right-sided sciatica (Primary Dx); Elevated BP without diagnosis of hypertension; Numbness and tingling of hand 03/14/2025 Travel 03/14/2025 Telephone [facility] [address] [place] [phone] Kamla Hooks [place] B[facility] Cancelled Appt (Provider out ) 03/11/2025 Telephone [facility] [address] [place] [address] Kamla Hooks MA chart prep 2025 1:00 PM EST Office Visit [facility] [address] [place] [address] [phone] Shelli Pepe MD Acute right-sided low back [...] Ql NAAT (04/17/2025 9:16 PM EST) Pathologist [facility] Influenza A PCR POSITIVE(A) Negative [facility] Influenza B PCR NEGATIVE Negative [facility] Resp Syncy Virus RNA Qual PCR NEGATIVE Negative [facility] SARS COV2 PCR NEGATIVE Negative [facility] Comment:All test results mus t be [...] use by authorized laboratories.Testing performed on the [employer] GeneXpert utilizingreal-time RT-PCR.All SARS CoV2 and positive influenza A/B results arereported to [facility]. 04/17/2025 9:16 PM EST 04/17/2025 9:20 PM EST us Generic External Data Provider LAB MICROBIOLOGY - GENERAL ORDERABLES Final Result [facility] [address] [place] [phone] * (ABNORMAL) CBC auto differential (04/17/2025 9:16 PM EST) [facility] White Blood Count 6.8 4.8 - 10.8 X10*3/uL [facility] Red Blood Count 4.94 4.60 - 5.80 X10*6/uL [facility] Hemoglobin 15.6 14.0 - 18.0 g/dl [facility] Hematocrit 42.9 42.0 - 52.0 % [facility] Mean Corpuscular Volume 86.8 80.0 - 98.0 fL [facility] Mean Corpuscular Hemoglobin 31.6 27.0 - 33.0 pg [facility] Mean Corpuscular HGB Conc 36.4(H) 31.0 - 36.0 g/dl [facility] Red Cell Distribution Width 12.5 11.0 - 16.0 % [facility] Platelet Count 184 160 - 400 X10*3/uL [facility] Mean Platelet Volume 10.7 9.4 - 12.4 fL [facility] Neutrophils Percent Auto 66.8 45 - 73 % [facility] Imm Gran Pct Auto 0.3 0.0 - 0.4 % [facility] Lymphocytes Percent Auto 11.7(L) 20 - 40 % [facility] Monocytes Percent Auto 18.0(H) 2 - 11 % [facility] Eosinophils Percent Auto 2.8 0 - 4 % [facility] Basophils Percent Auto 0.4 0 - 2 % [facility] NRBC Pct Auto 0.0 0.0 - 0.2 /100WBC [facility] Neutrophils Absolute Auto 4.6 2.0 - 8.3 x10*3/uL [facility] Imm Gran Abs Auto 0.02 0.00 - 0.03 X10*3/uL [facility] Lymphocytes Absolute Auto 0.8(L) 1.2 - 4.9 X10*3/uL [facility] Monocytes Absolute Auto 1.2 0.1 - 1.2 X10*3/uL [facility] Eosinophils Absolute Auto 0.2 0.0 - 0.4 X10*3/uL [facility] Basophils Absolute Auto 0.0 0.0 - 0.2 X10*3/uL [facility] NRBC Abs Auto 0.000 0.0 - 0.012 X10*3/uL [facility] 04/17/2025 9:16 PM EST 04/17/2025 9:20 PM EST us Generic External Data Provider LAB BLOOD ORDERAB LES Final Result [facility] [address] [place] [address] [phone] * Magnesium (04/17/2025 9:16 PM EST) Magnesium 2.0 1.6 - 2.6 mg/dL [facility] 04/17/2025 9:16 PM EST 04/17/2025 9:20 PM EST us Generic External Data Provider LAB BLOOD ORDERAB LES Final Result [facility] [address] [place] [address] [phone] * (ABNORMAL) Comprehensive Metabolic Panel (04/17/2025 9:16 PM EST) Sodium 140 135 - 145 mmol/L [facility] Potassium 3.6 3.3 - 5.1 mmol/L [facility] Chloride 107 96 - 108 mmol/L [facility] Carbon Dioxide 25 22 - 29 mmol/L [facility] Anion Gap 12 12 - 20 [facility] Urea Nitrogen (BUN) 14 9 - 16 mg/dL [facility] Creatinine, Serum 0.91 0.5 - 1.4 mg/dL [facility] Creatinine Clr Calc Pharmacy 105.9 [facility] Comment:eGFR (calculated fro m the MDRD study equation) and eCrCl(calculated from the Cockcroft-Gault equation) are based ondifferent parameters and may not yield comparable results.If eCrCl result is absurd, please check patient'sheight/weight. Estimated Glomerular Filt Rate >60 [facility] Comment:Chronic Kidney Disea se: Estimated GFR < 60 mL/min/[id number] Kidney Disease: Estimated GFR < 15 mL/min/1.73m2 Glucose 112 60 - 115 mg/dL [facility] Calcium 9.2 8.4 - 10.2 mg/dL [facility] Bilirubin, Total 0.6 0.0 - 1.0 mg/dL [facility] Aspartate Amino Transferase 27 5 - 37 U/L [facility] Alanine Aminotransferase 41(H) 0 - 40 U/L [facility] Total Protein 7.0 6.5 - 8.0 g/dL [facility] Albumin Level 4.7 3.5 - 5.0 g/dL [facility] Alkaline Phosphatase 69 39 - 117 U/L [facility] 04/17/2025 9:16 PM EST 04/17/2025 9:20 PM EST us Generic External Data Provider LAB BLOOD ORDERAB LES Final Result Performing Organization Address [facility] Co de Phone Number [facility] [address] [place] [phone] * (ABNORMAL) Lipid Panel, Standard (10/09/2024 7:59 AM EDT) Triglycerides 76 <150 mg/dL [facility] Comment:Desirable Triglyceri de: less than 150 mg/dLBorderline High Triglyceride 150-199 mg/dLHigh Triglyceride: 200-499 mg/dLVery High Triglyceride: greater than or equal to 5OO mg/dL Cholesterol 178 <200 mg/dL [facility] Comment:Desirable Cholestero l: less than 200 mg/dLBorderline High Cholesterol: 200-239 mg/dLHigh Cholesterol: greater than 239 mg/dL LDL Cholesterol Calculated 127(H) <100 mg/dL [facility] Comment:Desirable LDL: less than 100 mg/dLNear Optimal/Above Optimal LDL: 110- 129 mg/dLBorderline High LDL: 130-159 mg/dLHigh LDL: 160-189 mg/dLVery High LDL: greater than or equal to 190 mg/dL HDL Cholesterol 36(L) >40 mg/dL [facility] Comment:Desirable HDL: great er than 40 mg/dL Note: This HDL assay may give artificially low results in patients with liver disease. Blood Venous blood specimen / Unknown 10/09/2024 7:59 AM EDT 10/09/2024 7:59 AM EDT us Jack Royal MD LAB BLOOD ORDERABLES Final Resul t Performing Organization Address City/[facility]/ZIP Co de Phone Number [facility] [address] [place] [address] [phone] from Last 3 Months or Most Recently Relevant to Health Maintenance Insurance [facility] [address] [place] [phone] Care Teams Batch Dumper Relationship Specialty Start Date End Date Name, MD Jack [address] [place] [address] PCP - General Internal Medicine 03/24/25 03/24/26
== END 2025-04-30 09:23 | disposition home or self-care (01) ==
LOC: HO.MRI 09:22
PROVIDERS: PCP Internal Medicine Geriatric Medicine; Visit Provider Family Medicine
DX: G89.29 Other chronic pain (principal); M54.41 Lumbago with sciatica, right side
CPT/HCPCS: 72148